=== PATIENT | male | born 1940 | race Caucasian/White ===

== ENCOUNTER 2020-05-16 14:11 | Inpatient (IN) | payer MEDICARE, SELFPAY ==
[2020-05-16] VITALS (22 sets, daily range): BP systolic 149–193; BP diastolic 66–82; PULSE 66–87; RESP 16–26; TEMP 36.3–36.7; O2SAT 95–99; BMI 17.9
--- NOTE | ~2020-05-16 | XR_ITS ---
EXAMINATION: XR chest 1V portable DATE: 05/16/2020 15:52 INDICATION: Chronic obstructive pulmonary disease. Preop. TECHNIQUE: A single frontal view of the chest was obtained. COMPARISON: Chest 2 views 12/20/2017 FINDINGS: The lungs are hyperexpanded with lucencies, consistent with emphysema. There is mild scarri ng at right lung base. A calcified left lung nodule is consistent with old granulomatous disease. No pleural effusion or pneumothorax. The heart size is normal. There are changes of posterior fusion pro cedure in thoracic spine. IMPRESSION: 1. Emphysema. Reviewed, dictated and finalized at location A. UCTION ASSEMBLY SUPERVISOR IMPRESSION: 1. Emphysema.
--- NOTE | ~2020-05-16 | XR_ITS ---
EXAMINATION: XR surgery orthopedic DATE: 05/17/2020 14:06 INDICATION: Intertrochanteric fracture of proximal left femur. TECHNIQUE: 5 intraoperative fluoroscopic views of left femur were obtained. I was not present. Fluoro scopy exposure time was 103 seconds. COMPARISON: Left hip radiographs 05/16/2020 FINDINGS: There is an intertrochanteric fracture of proximal left femur status post open reduction in ternal fixation with antegrade intramedullary layla, femoral head/neck screw, and distal interlocking s crew. The distal fracture fragment demonstrates near-anatomic alignment. IMPRESSION: 1. Intertrochanteric fracture of proximal left femur in near-anatomic alignment status post open redu ction internal fixation. Reviewed, dictated and finalized at location A. ET DIRECTOR IMPRESSION: 1. Intertrochanteric fracture of proximal left femur in near-anatomic alignment status post open reduction internal fixation.
--- NOTE | ~2020-05-16 | XR_ITS ---
EXAMINATION: XR hip LT min 2V DATE: 05/16/2020 14:59 INDICATION: Left hip pain. Fall. TECHNIQUE: 2 views of left hip were obtained. COMPARISON: None. FINDINGS: There is an intertrochanteric fracture of proximal left femur. The distal fracture fragment demonstrates 22 degrees varus angulation and impaction. 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 There is moderate lumbar spondylosis. IMPRESSION: 1. Intertrochanteric fracture of proximal left femur. Reviewed, dictated and finalized at location A. RBERATORY SKIMMER
--- NOTE | 2020-05-16 14:19 | ECG_ITS ---
Measurements Intervals Mercedes Rate: 77 P: 77 OR: 144 QRS: 97 QRSD: 130 T: 72 QT: 388 QTc: 439 Interpretive Statements SINUS RHYTHM RIGHT BUNDLE BRANCH BLOCK BASELINE ARTIFACT- I, II, III, AVR, AVL, V1-V6 ABNORMAL ECG Electronically Signed On 05-16-2020 14:25:28 AUTO TRAVEL COUNSELOR by Rogerio Mueller D.O.
[2020-05-16] MEDS: MORPHINE SULFATE (*CRX) 4 MG/ML INJ IV PUSH (15:45)
[2020-05-16 15:48] LABS: Basophils Absolute Auto 0.1 K/mm3 (0.0-0.1); Basophils Percent Auto 0.4 % (0.2-1.2); Eosinophils Absolute Auto 0.1 K/mm3 (0-0.3); Eosinophils Percent Auto 0.8 % (0-4.4); Hematocrit 36.9 % (42.0-52.0); Hemoglobin 12.7 g/dL (14.0-18.0); Immature Granulocyte Absolute 0.04 K/mm3 (0.00-0.031); Immature Granulocyte Percent A 0.3 % (0-0.5); Lymphocytes Absolute Auto 0.89 K/mm3 (0.9-3.2); Lymphocytes Percent Auto 7.2 % (18.3-44.2); Mean Corpuscular HGB Conc 34.4 g/dl (32-36); Mean Corpuscular Hemoglobin 35.9 pg (26-34); Mean Corpuscular Volume 104.2 fl (80-100); Mean Platelet Volume 8.4 fl (7.4-10.4); Monocytes Absolute Auto 0.7 K/mm3 (0.1-0.6); Monocytes Percent Auto 5.7 % (2.6-8.5); Neutrophils Absolute Auto 10.6 K/mm3 (1.3-6.7); Neutrophils Percent Auto 85.6 % (45.5-73.1); Platelet Count Result 228 k/mm3 (150-375); Red Blood Count 3.54 M/mm3 (4.6-6.20); Red Cell Distribution Width 12.5 % (11.5-14.5); White Blood Count 12.4 K/mm3 (4.5-10.0)
[2020-05-16 15:57] LABS: INR 0.9; Prothrombin Time 12.6 Seconds (11.1-14.7)
[2020-05-16 16:01] LABS: Anion Gap 6 mmol/L (8-16); Blood Urea Nitrogen 22 mg/dL (9-20); Carbon Dioxide 25 mmol/L (22-30); Chloride 105 mmol/L (98-107); Estimated CRCL calculation 25 ml/min; Estimated Glomerular Filt Rate 39; Glucose 104 mg/dL (75-110); Potassium 4.4 mmol/L (3.4-5.0); Sodium 136 mmol/L (137-145)
--- NOTE | 2020-05-16 16:08 | ED.LOWEXIN ---
HPI - Extremity Injury (Lower) General Chief Complaint: Extremity Injury, Lower Stated Complaint: fall/ hip pain Time Seen by Provider: 05/16/20 14:45 Source: patient Mode of arrival: EMS Limitations: no limitations History of Present Illness HPI Narrative: 80-year-old male Has history of COPD which is well controlled on a once daily inhaler and hypertension on losartan Patient states that he got his Covid vaccination today and on the way out of the vaccination center tripped on the curb and fell and injured his left hip He did not sustain any other injuries and has no other complaints Obvious deformity and pain to the left lower extremity Related Data Home Medications Medication Instructions Recorded Confirmed fluticasone furoate-vilanterol INHALATION 05/16/20 [Breo Ellipta] lorazepam PO 05/16/20 losartan PO 05/16/20 simvastatin mg 05/16/20 Allergies Allergy/AdvReac Type Severity Reaction Status Date / Time No Known Allergies Allergy Mild Unverified 11/26/15 08:49 Review of Systems Review of Systems: All systems reviewed & are unremarkable except as noted in HPI and below Constitutional: Constitutional: Denies chills, Denies fatigue, Denies fever(s), Denies headache(s) and Denies weakness Eyes: Eyes: Reports no additional eye complaints and Denies change in vision ENT: Denies headache(s), Denies epistaxis, Denies nasal congestion and Denies sore throat Cardiovascular: Cardiovascular: Denies chest pain, Denies leg edema, Denies palpitations and Denies dyspnea Respiratory: Respiratory: Reports cough (Chronic), Denies dyspnea and Denies wheezing Gastrointestinal: Gastrointestinal: Denies abdominal pain, Denies diarrhea, Denies nausea and Denies vomiting Genitourinary: Genitourinary: Denies hematuria, Denies dysuria and Denies urinary frequency Musculoskeletal: Musculoskeletal: Denies back pain, Denies deformity, Reports arthralgias, Reports joint swelling, Denies muscle weakness and Denies numbness Integumentary/Breasts: Skin/Breast: Denies rash and Denies wounds Neurologic: Denies headache(s), Denies focal weakness, Denies numbness and Denies weakness Psychiatric: Psychiatric: Reports no additional psychiatric complaints Endocrine: Endocrine: Denies fatigue and Denies palpitations Hematologic/Lymphatic: Hematologic/Lymphatic: Denies easy bleeding and Denies easy bruising Allergic/Immunologic: Allergic/Immunologic: Denies wheezing PMFSH Family History Family History (Updated 10/18/15 @ 23:19 by DOCTOR UNKNOWN) Mother Family history of Alzheimer's disease, Onset Age: 87 Patient's mother is , Onset Age: 87 Sibling Family history of diabetes mellitus in first degree relative Family history of heart disease in male family member before age 55 Father Family history of heart disease in male family member before age 55 Patient's father is , Onset Age: 70 Social History Social History Smoking status: Never smoker Alcohol intake: current Exam Const: General: no acute distress, well developed, alert and awake Orientation/consciousness: patient oriented x3 (alert) HENMT: Head: normocephalic and atraumatic Ears: external ears normal General nose exam: No nasal discharge present and no epistaxis Face and sinus: face symmetric Eyes: Conjunctivae: conjunctivae normal Sclera: sclerae normal EOM: EOMs intact bilaterally Neck: Neck: normal visual inspection, supple and no JVD Chest: Chest palpation & inspection: deferred Resp: Effort & Inspection: normal respiratory effort and not tachypneic Auscultation: other (BS =) Cardio: Rate: regular rate Rhythm: regular rhythm Heart sounds: no gallops GI: Inspection: normal to inspection Back/Spine/Pelvis: Thoracic/Lumbar Spine: thoracic and lumbar spine normal to inspection Skin: General skin exam: normal color and no rashes or lesions noted Neuro: General: patient oriented x3 (a
--- NOTE | 2020-05-16 17:30 | ADMGEN ---
This patient, Pablito Cameron, was admitted to Medical Room 260-01. Patient/family oriented to hospital policies and general routines including ID bracelet, bed and alarms, visiting hours, pain management, procedures, bathroom and other care routines, personal items, smoking policy, room service/diet, and visiting hours. Information on how to activate the Rapid Response Team has been discussed. Patient/Family are encouraged to report perceived risks to care and to ask questions if they do not understand what they are told or what they should do.
[2020-05-16] MEDS: LACTATED RINGERS 1,000 ML 60 ML IV CONT (17:46)
--- NOTE | 2020-05-16 18:04 | PM.IMHP ---
H&P: HPI History of Present Illness Date/Time: 05/16/20 18:04 Chief Complaint: Left hip pain Narrative: Pablito Cameron is a 80 year old male who has a history of COPD. The patient has frequent falls as well. He lives at home with his daughter and son-in-law. The patient was leaving the [facility] after receiving his COVID vaccine when he fell backwards on his back after stepping off of a curb side. The patient stated that he did not hit his head or lose consciousness. The patient noticed that his left leg was deformed. There was obvious deformity to the left leg. Hip x-ray was read as Intratrochanteric fracture of proximal left femur. Dr. Petersen has been consulted. The patient was given morphine in the emergency room. The patient is being admitted to inpatient services on 05/16/2020. Review of Systems Review of Systems: All systems reviewed & are unremarkable except as noted in HPI and below Constitutional: Constitutional: Reports as per HPI and Reports no additional constitutional complaints Eyes: Eyes: Reports as per HPI and Reports no additional eye complaints ENT: Reports system reviewed and no additional complaints, except as documented and Reports Normal hearing present Cardiovascular: Cardiovascular: Reports no additional cardiovascular complaints Respiratory: Respiratory: Reports no additional respiratory complaints and Reports no additional respiratory complaints Gastrointestinal: Gastrointestinal: Reports as per HPI and Reports no additional gastrointestinal complaints Musculoskeletal: Musculoskeletal: Reports no additional musculoskeletal complaints Integumentary/Breasts: Skin/Breast: Reports system reviewed and no additional complaints, except as docu and Reports as per HPI Neurologic: Reports system reviewed and no additional complaints, except as documented, Reports as per HPI and Reports Normal hearing present Psychiatric: Psychiatric: Reports no additional psychiatric complaints and Reports as per HPI Endocrine: Endocrine: Reports no additional endocrine complaints Hematologic/Lymphatic: Hematologic/Lymphatic: Reports no additional hematologic/lymphatic complaints Allergic/Immunologic: Allergic/Immunologic: Reports no additional allergic/immunologic complaints [facility] Past Medical History Medical History (Updated 05/16/20 @ 18:38 by Gosia Vaca NP) Anxiety COPD (chronic obstructive pulmonary disease) History of lower leg fracture History of rib fracture Hyperlipidemia Hypertension Tobacco abuse Surgical History Surgical History (Updated 05/16/20 @ 18:20 by Gosia Vaca NP) H/O inguinal hernia repair Bilaterally History of appendectomy History of back surgery Family History Family History Mother Family history of Alzheimer's disease, Onset Age: 87 Patient's mother is , Onset Age: 87 Sibling Family history of diabetes mellitus in first degree relative Family history of heart disease in male family member before age 55 Father Family history of heart disease in male family member before age 55 Patient's father is , Onset Age: 70 Social History Social History (Updated 05/16/20 @ 18:28 by Gosia Vaca NP) Social History: Patient is . He is retired ready mix truck driver. He lives with his daughter and son-in-law. The patient told me that he is a DNR. However he stated that he would allow intubation for surgery. He has 5 children. The daughter he lives with is the durable power estate attorney for healthcare. He continues to smoke a half a pack a cigarettes a day. No alcohol marijuana or illicit drugs. Smoking packs per day: 0.5 Smoking cigarettes per day: 10.0 Smoking status: Current every day smoker Tobacco type: cigars Alcohol intake: never Substance use: never Gender identity (if verbalized by the patient): Male Sexual Orientation (if Verbal
[2020-05-16] MEDS: IPRATROPIUM BR 0.02% INH SOLN 0.5 MG/2.5 ML VIAL INHALATION (19:57)
[2020-05-16] MEDS: ALBUTEROL SULFATE NEB 2.5 MG/0.5 ML INH INHALATION (19:57)
[2020-05-17] VITALS (23 sets, daily range): BP systolic 130–190; BP diastolic 58–98; PULSE 67–106; RESP 18–31; TEMP 36.3–37.3; O2SAT 91–100; BMI 17.9
[2020-05-17] MEDS: MORPHINE SULFATE (*CRX) 2 MG/ML INJ IV PUSH (02:06)
[2020-05-17] MEDS: IPRATROPIUM BR 0.02% INH SOLN 0.5 MG/2.5 ML VIAL INHALATION ×3 (03:45→20:00)
[2020-05-17] MEDS: ALBUTEROL SULFATE NEB 2.5 MG/0.5 ML INH INHALATION ×3 (03:45→19:59)
[2020-05-17 05:23] LABS: Basophils Percent Auto 0.3 % (0.2-1.2); Hematocrit 35.6 % (42.0-52.0); Hemoglobin 12.3 g/dL (14.0-18.0); Immature Granulocyte Absolute 0.05 K/mm3 (0.00-0.031); Immature Granulocyte Percent A 0.4 % (0-0.5); Lymphocytes Absolute Auto 0.75 K/mm3 (0.9-3.2); Lymphocytes Percent Auto 6.6 % (18.3-44.2); Mean Corpuscular HGB Conc 34.6 g/dl (32-36); Mean Corpuscular Hemoglobin 35.5 pg (26-34); Mean Corpuscular Volume 102.9 fl (80-100); Mean Platelet Volume 8.4 fl (7.4-10.4); Monocytes Absolute Auto 0.9 K/mm3 (0.1-0.6); Neutrophils Absolute Auto 9.7 K/mm3 (1.3-6.7); Neutrophils Percent Auto 84.7 % (45.5-73.1); Platelet Count Result 220 k/mm3 (150-375); Red Blood Count 3.46 M/mm3 (4.6-6.20); Red Cell Distribution Width 12.4 % (11.5-14.5); White Blood Count 11.4 K/mm3 (4.5-10.0)
[2020-05-17 05:41] LABS: Anion Gap 7 mmol/L (8-16); Blood Urea Nitrogen 22 mg/dL (9-20); Calcium 9.3 mg/dL (8.4-10.2); Carbon Dioxide 23 mmol/L (22-30); Chloride 104 mmol/L (98-107); Estimated CRCL calculation 27 ml/min; Estimated Glomerular Filt Rate 45; Glucose 112 mg/dL (75-110); Magnesium 1.7 mg/dL (1.6-2.3); Potassium 4.3 mmol/L (3.4-5.0); Sodium 134 mmol/L (137-145)
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
[2020-05-17] MEDS: LACTATED RINGERS 1,000 ML 60 ML IV CONT (09:59)
[2020-05-17] MEDS: LOSARTAN POTASSIUM 25 MG TABLET PO (10:02)
--- NOTE | 2020-05-17 11:05 | PM.IMPN ---
Progress Note: A&P Assessment and Plan (1) Closed fracture of left hip: Qualifiers: Encounter type: initial encounter Qualified Code(s): S72.002A - Fracture of unspecified part of neck of left femur, initial encounter for closed fracture Code(s): S72.002A - Fracture of unspecified part of neck of left femur, initial encounter for closed fracture Status: Acute Assessment and Plan: Patient sustained a mechanical fall 05/16. X-ray shows intertrochanteric fracture of proximal left femur. Dr. Petersen consulted - appreciate recommendations. Plan is for surgical intervention with L gamma nail this afternoon. Postoperative wound care, pain control, DVT prophylaxis per orthopedic surgery recommendations. Perioperative risk stratification: Patient appears moderate risk for surgery given his chronic emphysema and ongoing tobacco use however risk of nonsurgical management of his fracture seem greater. Chest x-ray shows chronic emphysema without acute consolidation or infiltrates. With a right bundle branch block. Right bundle branch block is not new and is evident on EKGs dating back to at least 2015. Routine lab work demonstrates a mild leukocytosis - suspect may be stress reaction from trauma; afebrile, infectious process is not suspected at this time however will order UA for completeness sake. Edit: Notified by nursing of one episode of dark emesis prior to going down to surgery. First episode of this. RN will call to make surgery aware of same. He has zofran ordered and I will order IV protonix. He denies history of ulcers, GI bleeding, or hematemesis. Hgb is stable this morning. Gastric occult is ordered - will monitor and await these results, if vomiting recurs will consider consider GI consultation. (2) COPD (chronic obstructive pulmonary disease): Code(s): J44.9 - Chronic obstructive pulmonary disease, unspecified Status: Chronic Assessment and Plan: CXR shows emphysema without acute findings. Maintained on his home symbicort. Reports his breathing and cough are at his baseline. Continue bronchodilator therapy with nebulziers. (3) Hypertension: Code(s): I10 - Essential (primary) hypertension Status: Chronic Assessment and Plan: BP a bit elevated this morning 162/77, may be related to pain and this is also prior to getting his AM medication. Continue his home losartan. Monitor BP and adjust treatment as needed. (4) Hyperlipidemia: Code(s): E78.5 - Hyperlipidemia, unspecified Status: Chronic Assessment and Plan: Continue home statin therapy. (5) Tobacco abuse: Code(s): Z72.0 - Tobacco use Status: Chronic Assessment and Plan: Smoking cessation encouraged. Offered him a nicotine patch but declined at this time. Wants to quit. (6) Anxiety: Code(s): F41.9 - Anxiety disorder, unspecified Status: Chronic Assessment and Plan: Continue Ativan. Subjective Date/time seen: 05/17/20 0945 Interval history: Mr. Cameron is a pleasant 80yo M with COPD who is admitted for left hip fracture. Per the records plan is for surgical intervention with gamma nail by Dr Petersen this afternoon. Patient reports severe left hip pain at time of my encounter that he rates 11/10 severity. He denies chest pain or shortness of breath. He reports a productive cough that he always has due to COPD and smoking. He tells me neither his breathing nor his cough are worse than his baseline. He denies any abdominal pain, nausea or vomiting aside from being hungry this morning. He is in good spirits and understands the plan for today. Review of Systems Review of Systems: All systems reviewed & are u
[2020-05-17] MEDS: PANTOPRAZOLE SODIUM IV 40 MG VIAL IV PUSH (11:39)
--- NOTE | 2020-05-17 11:40 | PC.NURSE ---
Building Contractor had pt take his dentures out which caused him to have a emesis, observed rust color, coffee ground emesis, approximately 100cc. Building Contractor notified Sommer BUSH and Dr. Rhianna Brownlee give protonix IV times one and continue with surgery as planned.
[2020-05-17 11:48] LABS: Gastric Negative Control Negative; Gastric Positive Control Positive; Occult Blood Gastric Fluid Positive; pH Gastric Fluid 3 (1-8)
--- NOTE | 2020-05-17 11:48 | WPDANESEPPF ---
Anes - Initial Pre Proc Eval Procedure: Operation Date: 05/17/20 12:45 Proposed Procedures p Left Gamma Nail - Dago Petersen MD Date/Time: 05/17/20 11:48 Surgeon: LU Ann Pre Op Diagnosis: Left hip fracture/COPD Patient Data Age: 80 Gender: M Height: 5 ft 7 in Weight: 51.8 kg Last Vital Signs Temp 97.6 F 05/17/20 07:49 Pulse 106 H 05/17/20 08:20 Resp 18 05/17/20 08:20 BP 162/77 H 05/17/20 07:49 Pulse Ox 94 05/17/20 08:20 Allergies Allergy/AdvReac Type Severity Reaction Status Date / Time No Known Allergies Allergy Mild Verified 05/16/20 18:28 Home Medications Medication Instructions Recorded Confirmed Type fluticasone furoate-vilanterol 1 inh INHALATION DAILY 05/16/20 05/16/20 History [Breo Ellipta] lorazepam [Ativan] 1 mg PO DAILY 05/16/20 05/16/20 History losartan 25 mg PO DAILY 05/16/20 05/16/20 History simvastatin 20 mg PO DAILY 05/16/20 05/16/20 History Laboratory Tests 05/16/20 05/16/20 05/16/20 15:39 15:39 15:39 WBC 12.4 K/mm3 H K/mm3 (4.5-10.0) RBC 3.54 M/mm3 L M/mm3 (4.6-6.20) Hgb 12.7 g/dL L g/dL (14.0-18.0) Hct 36.9 % L % (42.0-52.0) MCV 104.2 fl H fl (80-100) MCH 35.9 pg H pg (26-34) MCHC 34.4 g/dl g/dl (32-36) RDW 12.5 % % (11.5-14.5) Plt Count 228 k/mm3 k/mm3 (150-375) MPV 8.4 fl fl (7.4-10.4) Immature Gran % (Auto) 0.3 % % (0-0.5) Neut % (Auto) 85.6 % H % (45.5-73.1) Lymph % (Auto) 7.2 % L % (18.3-44.2) [place] % (Auto) 5.7 % % (2.6-8.5) Eos % (Auto) 0.8 % % (0-4.4) Baso % (Auto) 0.4 % % (0.2-1.2) Lymph # (Auto) 0.89 K/mm3 L K/mm3 (0.9-3.2) [place] # (Auto) 0.7 K/mm3 H K/mm3 (0.1-0.6) Eos # (Auto) 0.1 K/mm3 K/mm3 (0-0.3) Baso # (Auto) 0.1 K/mm3 K/mm3 (0.0-0.1) Abs Immat Gran (auto) 0.04 K/mm3 H K/mm3 (0.00-0.031) Absolute Neuts (auto) 10.6 K/mm3 H K/mm3 (1.3-6.7) Absolute Nucleated RBC 0.0 K/mm3 K/mm3 (0.0-0.012) Nucleated RBC % 0.0 % % (0.0-0.2) PT 12.6 Seconds Seconds (11.1-14.7) INR 0.9 Sodium 136 mmol/L L mmol/L (137-145) Potassium 4.4 mmol/L mmol/L (3.4-5.0) Chloride 105 mmol/L mmol/L (98-107) Carbon Dioxide 25 mmol/L mmol/L (22-30) Anion Gap 6 mmol/L L mmol/L (8-16) BUN 22 mg/dL H mg/dL (9-20) Creatinine 1.70 mg/dL H mg/dL (0.7-1.3) Estim Creat Clear Calc 25 ml/min ml/min Estimated GFR 39 L (59 - ) Glucose 104 mg/dL mg/dL (75-110) Calcium 9.0 mg/dL mg/dL (8.4-10.2) Magnesium TSH (Reflex) Gastric Fluid pH Gastric Occult Blood Blood Type Antibody Screen 05/16/20 05/17/20 05/17/20 15:39 05:10 05:10 WBC 11.4 K/mm3 H K/mm3 (4.5-10.0) RBC 3.46 M/mm3 L M/mm3 (4.6-6.20) Hgb 12.3 g/dL L g/dL (14.0-18.0) Hct 35.6 % L % (42.0-52.0) MCV 102.9 fl H fl (80-100) MCH 35.5 pg H pg (26-34) MCHC 34.6 g/dl g/dl (32-36) RDW 12.4 % % (11.5-14.5) Plt Count 220 k/mm3 k/mm3 (150-375) MPV 8.4 fl fl (7.4-10.4) Immature Gran % (Auto) 0.4 % % (0-0.5) Neut % (Auto) 84.7 % H % (45.5-73.1) Lymph % (Auto) 6.6 % L % (18.3-44.2) [place] % (Auto) 8.0 % % (2.6-8.5) Eos % (Auto) 0.0 % % (0-4.4) Baso % (Auto) 0.3 % % (0.2-1.2) Lymph # (Auto) 0.75 K/mm3 L K/mm3 (0.9-3.2) [place] # (Auto) 0.9 K/mm3 H K/mm3 (0.1-0.6) Eos # (Auto) 0.0 K/mm3 K/mm3 (0-0.3) Baso # (Auto) 0.0 K/mm3 K/mm3 (0.0-0.1) Abs Immat Gran (auto) 0.05 K/mm3 H K/mm3
[2020-05-17] MEDS: TRANEXAMIC ACID 1,000MG/ISO100 1,000 MG/100 ML BAG 200 MG IVPB (12:27)
--- NOTE | 2020-05-17 12:47 | WPDHPUPDATE1 ---
History and Physical Update Update Date/Time: 05/17/20 12:47 History and Physical has been reviewed, including an updated exam of the patient. There are NO changes in the patient's condition. Risks, benefits, and alternatives have been discussed and questions answered. Patient agrees to proceed with procedure.
--- NOTE | 2020-05-17 12:55 | PC.NURSE ---
Addendum entered by Madeleine Barrera RN 05/17/20 13:01: report given to Emperatriz ZUNIGA Original Note: To OR per matildaer, IV 20 LAC SL. Report given to .
[2020-05-17] MEDS: LACTATED RINGERS 1,000 ML 30 ML IV CONT (12:57)
[2020-05-17] MEDS: ceFAZolin 2 GM/D5W 50 ML 2 GM/50 ML BAG IVPB ×2 (13:11→20:25)
--- NOTE | 2020-05-17 14:24 | PM.PROC ---
Procedure Note - Detailed Date of procedure: 05/17/20 Pre-op diagnosis: Left hip fracture/COPD Post-op diagnosis: same Procedure performed: INSERTION OF GAMMA [place] LEFT HIP FRACTURE Description of procedure: THE PATIENT WAS TAKEN TO THE OR AND PLACED ON A FRACTURE TABLE AFTER HAVEN BEEN GIVEN GENERAL ANESTHESIA. THE LEFT LOWER EXTREMITY WAS PLACED IN A TRACTION BOOT AND USING SOME TRACTION AND INTERNAL ROTATION THE INTER TROCH FRACTURE WAS REDUCED TO ANATOMIC POSITION. NEXT THE LEFT LOWER EXTREMITY WAS PREPPED AND DRAPED IN THE STERILE FASHION. AN INCISION WAS MADE PROXIMAL TO THE TIP OF THE GREATER TROCHANTER AND DISSECTION CONTINUED TILL THE TIP OF THE GREATER TROCHANTER WAS PALPATED. A GUIDE WAS PLACED DOWN THE FEMORAL CANAL AND PAST THE FRACTURE SITE. THIS WAS CHECKED ON FLUOROSCOPY AND FOUND TO BE IN GOOD POSITION. AN INITIAL REAMER WAS USED TO REAM THE FEMORAL CANAL. AN 11 BY 180 MM GAMMA T[place] WAS INSERTED TILL THE CORRECT POSITION WAS IDENTIFIED ON XRAY. A GUIDE PIN WAS INSERTED AT 125 DEG ANGLE TILL IT REACHED THE TIP OF THE SUB CHONDRAL BONE SEEN ON XRAY. AFTER REAMING, LAG SCREW WAS INSERTED AT 125 [address]GLE MEASURING 110 MM. XRAYS SHOWED IT TO BE IN GOOD POSITION. THE LAG SCREW WAS LOCKED PROXIMALLY WITH A LOCKING SCREW. NEXT A DISTAL LOCKING SCREW WAS PLACED ACROSS THE T[place] AND WAS IN GOOD POSITION ON XRAY. THE TRACTION WAS RELEASED. THE WOUNDS WERE WASHED. THE DEEP FASCIA WAS REPAIRED WITH 0 VICRYL SUTURE, THE SUB CUTANEOUS LAYER WITH 2-0 VICRYL, AND THE SKIN WITH [place]. THE WOUNDS WERE WASHED AND THEN STERILE DRESSING WAS APPLIED. PATIENT WAS EXTUBATED AND SENT TO RECOVERY ROOM. Anesthesia: GLMA Surgeon: Dago Petersen MD Estimated blood loss (mL): 50 Drains: No Packing: No Pathology: none sent Complications: No immediate complications Condition: stable Disposition: PACU
--- NOTE | 2020-05-17 14:29 | PC.NURSE ---
On 05/17/20, the student, [ Nolberto Garcia], provided care and completed [facility] documentation on this patient. I have reviewed the student's documentation and agree with the findings.
[2020-05-17] MEDS: fentaNYL CITRATE INJ (*CRX) 100 MCG/2 ML VIAL 25 MCG IV PUSH (15:09)
--- NOTE | 2020-05-17 16:02 | PC.NURSE ---
Returned from OR per stretcher. Report received from Cat RN.
[2020-05-17] MEDS: DOCUSATE SODIUM 100 MG CAPSULE PO (17:27)
[2020-05-17 19:32] LABS: Add Urine Microscopic? YES; Appearance Urine Clear (Clear); Bacteria Urine Trace /hpf; Bilirubin Urine Negative (Negative); Blood Urine 3+ (Negative); Color Urine Yellow (Yellow); Glucose Urine UA Negative (Negative); Ketones Urine Negative (Negative); Leukocyte Esterase Ur Trace LEU/UL (Negative); Mucus Urine Rare /lpf; Nitrate Urine Negative (Negative); Protein Urine 2+ mg/dL (Negative); RBC Urine >75 /hpf (0-2); Specific Grav Ur 1.023 (1.001-1.035); Urobilinogen Urine Negative mg/dL (<2.0); WBC Urine 21-30 /hpf
[2020-05-18] VITALS (16 sets, daily range): BP systolic 137–154; BP diastolic 54–68; PULSE 50–111; RESP 16–20; TEMP 36.6–37; O2SAT 92–99
[2020-05-18] MEDS: IPRATROPIUM BR 0.02% INH SOLN 0.5 MG/2.5 ML VIAL INHALATION ×4 (02:09→21:51)
[2020-05-18] MEDS: ALBUTEROL SULFATE NEB 2.5 MG/0.5 ML INH INHALATION ×4 (02:09→21:51)
[2020-05-18] MEDS: ceFAZolin 2 GM/D5W 50 ML 2 GM/50 ML BAG IVPB ×2 (03:01→10:30)
[2020-05-18 05:40] LABS: Basophils Percent Auto 0.2 % (0.2-1.2); Eosinophils Percent Auto 0.1 % (0-4.4); Hematocrit 31.5 % (42.0-52.0); Hemoglobin 10.9 g/dL (14.0-18.0); Immature Granulocyte Absolute 0.07 K/mm3 (0.00-0.031); Immature Granulocyte Percent A 0.5 % (0-0.5); Lymphocytes Absolute Auto 0.61 K/mm3 (0.9-3.2); Lymphocytes Percent Auto 4.7 % (18.3-44.2); Mean Corpuscular HGB Conc 34.6 g/dl (32-36); Mean Platelet Volume 8.4 fl (7.4-10.4); Monocytes Absolute Auto 0.9 K/mm3 (0.1-0.6); Monocytes Percent Auto 7.2 % (2.6-8.5); Neutrophils Absolute Auto 11.2 K/mm3 (1.3-6.7); Neutrophils Percent Auto 87.3 % (45.5-73.1); Platelet Count Result 197 k/mm3 (150-375); Red Blood Count 3.03 M/mm3 (4.6-6.20); Red Cell Distribution Width 12.8 % (11.5-14.5); White Blood Count 12.9 K/mm3 (4.5-10.0)
[2020-05-18 05:52] LABS: Anion Gap 7 mmol/L (8-16); Blood Urea Nitrogen 25 mg/dL (9-20); Calcium 8.8 mg/dL (8.4-10.2); Carbon Dioxide 24 mmol/L (22-30); Chloride 103 mmol/L (98-107); Estimated CRCL calculation 27 ml/min; Estimated Glomerular Filt Rate 45; Glucose 112 mg/dL (75-110); Magnesium 1.6 mg/dL (1.6-2.3); Sodium 134 mmol/L (137-145)
[2020-05-18] MEDS: LOSARTAN POTASSIUM 25 MG TABLET PO (09:03)
[2020-05-18] MEDS: LORazepam (*CRX) 1 MG TABLET PO (09:03)
[2020-05-18] MEDS: DOCUSATE SODIUM 100 MG CAPSULE PO ×2 (09:03→17:34)
[2020-05-18] MEDS: SIMVASTATIN 20 MG TABLET PO (09:03)
[2020-05-18] MEDS: PANTOPRAZOLE SODIUM IV 40 MG VIAL IV PUSH (09:03)
[2020-05-18] MEDS: FONDAPARINUX SODIUM 2.5 MG/0.5 ML SYRINGE SUB-Q (09:03)
[2020-05-18] MEDS: MAGNESIUM SULF 2 GM/WATER 50ML 2 GM/50 ML BAG IVPB (09:04)
--- NOTE | 2020-05-18 10:50 | WPDANESPN ---
Anes - Prog Note Post-Op Date/Time: 05/18/20 10:50 Cardiovascular status: normal Respiratory status: normal Airway patency: baseline Mental status: baseline Post-Op hydration status: normal Vital Signs: Last Vital Signs Temp 37.0 C 05/18/20 05:34 Pulse 103 H 05/18/20 07:22 Resp 20 05/18/20 07:22 BP 152/68 H 05/18/20 05:34 Pulse Ox 97 05/18/20 09:00 Pain Score (VAS): 03/31 I/O: Intake & Output 05/17/20 05/18/20 05/18/20 23:59 07:59 15:59 Intake Total 360 1050 Output Total 550 Balance 360 500 Laboratory Tests 05/18/20 05:22 05/18/20 05:22 05/17/20 05/17/20 05/18/20 11:37 19:15 05:22 WBC 12.9 H RBC 3.03 L Hgb 10.9 L Hct 31.5 L MCV 104.0 H MCH 36.0 H MCHC 34.6 RDW 12.8 Plt Count 197 MPV 8.4 Immature Gran % (Auto) 0.5 Neut % (Auto) 87.3 H Lymph % (Auto) 4.7 L Moore % (Auto) 7.2 Eos % (Auto) 0.1 Baso % (Auto) 0.2 Lymph # (Auto) 0.61 L Moore # (Auto) 0.9 H Eos # (Auto) 0.0 Baso # (Auto) 0.0 Abs Immat Gran (auto) 0.07 H Absolute Neuts (auto) 11.2 H Absolute Nucleated RBC 0.0 Nucleated RBC % 0.0 Sodium Potassium Chloride Carbon Dioxide Anion Gap BUN Creatinine Estim Creat Clear Calc Estimated GFR Glucose Calcium Magnesium Urine Color Yellow Urine Appearance Clear Urine pH 5.0 Ur Specific [place] 1.023 Urine Protein 2+ H Urine Glucose (UA) Negative Urine Ketones Negative Ur Blood (Man) 3+ H Urine Nitrate Negative Urine Bilirubin Negative Urine Urobilinogen Negative Leukocyte Esterase Rfl Trace H Urine RBC >75 H Urine WBC 21-30 H Urine Bacteria Trace Urine Mucus Rare Gastric Fluid pH 3 Gastric Occult Blood Positive H 05/18/20 05:22 WBC RBC Hgb Hct MCV MCH MCHC RDW Plt Count MPV Immature Gran % (Auto) Neut % (Auto) Lymph % (Auto) Moore % (Auto) Eos % (Auto) Baso % (Auto) Lymph # (Auto) Moore # (Auto) Eos # (Auto) Baso # (Auto) Abs Immat Gran (auto) Absolute Neuts (auto) Absolute Nucleated RBC Nucleated RBC % Sodium 134 L Potassium 4.0 Chloride 103 Carbon Dioxide 24 Anion Gap 7 L BUN 25 H Creatinine 1.50 H Estim Creat Clear Calc 27 Estimated GFR 45 L Glucose 112 H Calcium 8.8 Magnesium 1.6 Urine Color Urine Appearance Urine pH Ur Specific [place] Urine Protein Urine Glucose (UA) Urine Ketones Ur Blood (Man) Urine Nitrate Urine Bilirubin Urine Urobilinogen Leukocyte Esterase Rfl Urine RBC Urine WBC Urine Bacteria Urine Mucus Gastric Fluid pH Gastric Occult Blood Post-procedural complaints: none Patient Feedback: Patient satisfied with anesthetic care.
[2020-05-18] MEDS: HYDROcodone/acetaminophen (*CRX) 7.5-325 MG TABLET 1 TAB PO ×2 (11:40→21:05)
--- NOTE | 2020-05-18 15:56 | WPDPN ---
Progress Note: A&P Additional Plan POD 1 DOING WELL, WORKING WITH PT. CONTINUE PT AND SNF WHEN STABLE Review of Systems Review of Systems: All systems reviewed & are unremarkable except as noted in HPI and below Exam Extrem: Other: VSS AFEBRILE DRESSING DRY NV INTACT NEG HOMANS SIGN Objective Data Vital Signs Vital Signs: Vital Signs - 24 hr 05/17/20 16:10 05/17/20 16:25 05/17/20 16:55 Temperature 37.2 C 37.2 C 37.2 C Pulse Rate 96 95 95 Respiratory Rate 20 20 20 Blood Pressure 153/60 H 168/58 H 150/64 H Pulse Oximetry 94 91 91 05/17/20 17:55 05/17/20 20:00 05/17/20 20:10 Temperature 37.3 C Pulse Rate 90 98 98 Respiratory Rate 20 18 18 Blood Pressure 146/61 H Pulse Oximetry 99 99 05/17/20 22:00 05/18/20 01:34 05/18/20 02:00 Temperature 37.1 C 37.0 C Pulse Rate 101 H 92 82 Respiratory Rate 18 20 20 Blood Pressure 149/64 H 154/67 H Pulse Oximetry 97 95 05/18/20 02:10 05/18/20 05:34 05/18/20 07:16 Temperature 37.0 C Pulse Rate 88 98 99 Respiratory Rate 20 16 20 Blood Pressure 152/68 H Pulse Oximetry 96 05/18/20 07:18 05/18/20 07:22 05/18/20 09:00 Temperature Pulse Rate 99 103 H Respiratory Rate 20 Blood Pressure Pulse Oximetry 97 97 05/18/20 10:00 05/18/20 13:12 05/18/20 13:17 Temperature 37.0 C Pulse Rate 98 99 99 Respiratory Rate 16 20 20 Blood Pressure 137/55 L Pulse Oximetry 99 05/18/20 14:00 Temperature 36.6 C Pulse Rate 50 L Respiratory Rate 16 Blood Pressure 145/54 H Pulse Oximetry 98 Intake/Output Intake/Output: Intake & Output 05/15/20 05/16/20 05/17/20 05/18/20 23:59 23:59 23:59 23:59 Intake Total 100 1660 1100 Output Total 700 550 Balance 100 960 550 Meds/Results Medications: Active Medications Generic Name Dose Route Start Last Admin Trade Name Freq PRN Reason Stop Dose Admin Hydrocodone Bitart/Acetaminophen 1 tab 05/17/20 15:49 05/18/20 11:40 Hydrocodone/Acetaminophen (*Crx) 7.5-325 Mg Tablet PO 1 tab Q6H PRN Administration Pain Rated 4-6 Albuterol 2.5 mg 05/16/20 20:00 05/18/20 13:12 Albuterol Sulfate Neb 2.5 Mg/0.5 Ml Inh INHALATION 2.5 mg Q6HRT ARIANNA Administration Budesonide/Formoterol Fumarate 2 puff 05/17/20 08:00 05/18/20 07:16 Budesonide/Form 160-4.5 Mcg (*Sp) INHALATION 2 puff Q12HRT ARIANNA Administration Diazepam 5 mg 05/17/20 15:49 Diazepam (*Crx) 5 Mg Tablet PO Q8H PRN Muscle Spasm Docusate Sodium 100 mg 05/17/20 17:00 05/18/20 09:03 Docusate Sodium 100 Mg Capsule PO 100 mg BID ARIANNA Administration Fondaparinux 2.5 mg 05/18/20 09:00 05/18/20 09:03 Fondaparinux Sodium 2.5 Mg/0.5 Ml Syringe SUB-Q 2.5 mg DAILY ARIANNA Administration Ipratropium [place] 0.5 mg 05/16/20 20:00 05/18/20 13:11 Ipratropium Br 0.02% Inh Soln 0.5 Mg/2.5 Ml Vial INHALATION 0.5 mg Q6HRT ARIANNA Administration Lorazepam 1 mg 05/17/20 09:00 05/18/20 09:03 Lorazepam (*Crx) 1 Mg Tablet PO 1 mg DAILY ARIANNA Administration Losartan Potassium 25 mg 05/17/20 09:00 05/18/20 09:03 Losartan Potassium 25 Mg Tablet PO 25 mg DAILY ARIANNA Administration Magnesium Hydroxide 30 ml 05/17/20 15:49 Magnesium Hydroxide Susp 30 Ml Udc PO BID PRN Constipation Morphine Sulfate 2 mg 05/16/20 17:58 05/17/20 02:06 Morphine Sulfate (*Crx) 2 Mg/Ml Inj IV PUSH 2 mg Q4H PRN Administration Pain Rated 7-10 Ondansetron HCl 4 mg 05/17/20 12:17 Ondansetron Inj 4 Mg/2 Ml Vial IV PUSH ONCE PRN Nausea Pantoprazole Sodium 40 mg 05/17/20 11:20 05/18/20 09:03 Pantoprazole Sodium Iv 40 Mg Vial IV PUSH 40 mg QAM ARIANNA Administration Simvastatin 20 mg 05/17/20 09:00 05/18/20 09:03 Simvastatin 20 Mg Tablet PO 20 mg DAILY ARIANNA Administration Radiology Results: ITS Impressions Hip X-Ray 05/16/20 15:00 IMPRESSION: 1. Intertrochanteric fracture of proximal left femur. Chest X-Ray 05/16/20 15
--- NOTE | 2020-05-18 16:01 | PM.IMPN ---
Progress Note: A&P Assessment and Plan (1) Closed fracture of left hip: Qualifiers: Encounter type: initial encounter Qualified Code(s): S72.002A - Fracture of unspecified part of neck of left femur, initial encounter for closed fracture Code(s): S72.002A - Fracture of unspecified part of neck of left femur, initial encounter for closed fracture Status: Acute Assessment and Plan: Patient sustained a mechanical fall 05/16. X-ray showed intertrochanteric fracture of proximal left femur. He is now doing well POD#1 left gamma nail insertion by Dr Petersen 05/17/20. Postoperative wound care, pain control, DVT prophylaxis per orthopedic surgery recommendations. (2) COPD (chronic obstructive pulmonary disease): Code(s): J44.9 - Chronic obstructive pulmonary disease, unspecified Status: Chronic Assessment and Plan: CXR shows emphysema without acute findings. Maintained on his home symbicort. Reports his breathing and cough are at his baseline. Continue bronchodilator therapy with nebulziers. Lungs actually clearer than yesterday since nebs were started. (3) Hypertension: Code(s): I10 - Essential (primary) hypertension Status: Chronic Assessment and Plan: BPs variable but a bit more stable this afternoon, last 145/54. Continue his home losartan. Monitor BP and adjust treatment as needed. (4) Hyperlipidemia: Code(s): E78.5 - Hyperlipidemia, unspecified Status: Chronic Assessment and Plan: Continue home statin therapy. (5) Tobacco abuse: Code(s): Z72.0 - Tobacco use Status: Chronic Assessment and Plan: Smoking cessation encouraged. Offered him a nicotine patch but declined at this time. Wants to quit. (6) Anxiety: Code(s): F41.9 - Anxiety disorder, unspecified Status: Chronic Assessment and Plan: Continue Ativan. Subjective Date/time seen: 05/18/20 1215 Interval history: Mr. Cameron is a pleasant 80yo M with COPD who is admitted for left hip fracture now POD#1 s/p gamma layla insertion yesterday. He is doing well today. He reports he had a bit of left hip pain working with therapy, however now at rest he describes being in no pain at all. He denies any chest pain or shortness of breath. His cough is at his baseline. He has had no further episodes of emesis and has eaten breakfast without nausea, vomiting, abdominal pain today. In good spirits and offers no complaints. Review of Systems Review of Systems: All systems reviewed & are unremarkable except as noted in HPI and below Exam Narrative: Exam Narrative: General: Male resting supine in bed in no acute distress. HEENT: Normocephalic, EOMI, oral mucosa moist. Cardiovascular: Rate and rhythm are regular. Respiratory: Lungs clear to auscultation anteriorly, improved from yesterday. Respirations even and nonlabored. Cough on exam +. Tolerating low-flow O2 nasal cannula however oxygen saturations are adequate. Abdomen: Soft, non-tender, non-distended, bowel sounds present. Extremities: Peripheral pulses intact. Left leg is neurovascularly intact distal to the surgical site. Dressings to left are clean, dry, intact. Neuro: No focal neurological deficits. Speech is clear. Objective Data Vital Signs Vital Signs: Last Vital Signs Temp 97.9 F 05/18/20 14:00 Pulse 50 L 05/18/20 14:00 Resp 16 05/18/20 14:00 BP 145/54 H 05/18/20 14:00 Pulse Ox 98 05/18/20 14:00 Intake/Output Intake/Output: Intake & Output 05/15/20 05/16/20 05/17/20 05/18/20 23:59 23:59 23:59 23:59 Intake Total 100 1660 1100 Output Total 700 550 Balance 100 960 550 Meds/Results Medications: Acti
[2020-05-19] VITALS (8 sets, daily range): BP systolic 131–135; BP diastolic 58; PULSE 52–113; RESP 16–22; TEMP 36.7–36.9; O2SAT 91–95
[2020-05-19] MEDS: IPRATROPIUM BR 0.02% INH SOLN 0.5 MG/2.5 ML VIAL INHALATION ×4 (02:21→19:50)
[2020-05-19] MEDS: ALBUTEROL SULFATE NEB 2.5 MG/0.5 ML INH INHALATION ×4 (02:21→19:50)
[2020-05-19 05:26] LABS: Basophils Percent Auto 0.1 % (0.2-1.2); Eosinophils Percent Auto 0.1 % (0-4.4); Hematocrit 29.5 % (42.0-52.0); Immature Granulocyte Absolute 0.09 K/mm3 (0.00-0.031); Immature Granulocyte Percent A 0.7 % (0-0.5); Lymphocytes Absolute Auto 0.69 K/mm3 (0.9-3.2); Lymphocytes Percent Auto 5.1 % (18.3-44.2); Mean Corpuscular HGB Conc 33.9 g/dl (32-36); Mean Corpuscular Volume 103.1 fl (80-100); Mean Platelet Volume 8.6 fl (7.4-10.4); Monocytes Absolute Auto 0.9 K/mm3 (0.1-0.6); Monocytes Percent Auto 6.4 % (2.6-8.5); Neutrophils Absolute Auto 11.8 K/mm3 (1.3-6.7); Neutrophils Percent Auto 87.6 % (45.5-73.1); Platelet Count Result 195 k/mm3 (150-375); Red Blood Count 2.86 M/mm3 (4.6-6.20); Red Cell Distribution Width 12.4 % (11.5-14.5); White Blood Count 13.5 K/mm3 (4.5-10.0)
[2020-05-19 05:40] LABS: Anion Gap 6 mmol/L (8-16); Blood Urea Nitrogen 29 mg/dL (9-20); Calcium 8.4 mg/dL (8.4-10.2); Carbon Dioxide 23 mmol/L (22-30); Chloride 104 mmol/L (98-107); Estimated CRCL calculation 25 ml/min; Estimated Glomerular Filt Rate 42; Glucose 90 mg/dL (75-110); Potassium 4.2 mmol/L (3.4-5.0); Sodium 133 mmol/L (137-145)
[2020-05-19] MEDS: HYDROcodone/acetaminophen (*CRX) 7.5-325 MG TABLET 1 TAB PO ×3 (06:09→21:27)
[2020-05-19] MEDS: SODIUM CHLORIDE 0.9% IV 1,000 ML 100 ML IV CONT (08:27)
[2020-05-19] MEDS: FONDAPARINUX SODIUM 2.5 MG/0.5 ML SYRINGE SUB-Q (08:27)
[2020-05-19] MEDS: PANTOPRAZOLE SODIUM IV 40 MG VIAL IV PUSH (08:28)
[2020-05-19] MEDS: LOSARTAN POTASSIUM 25 MG TABLET PO (08:28)
[2020-05-19] MEDS: SIMVASTATIN 20 MG TABLET PO (08:28)
[2020-05-19] MEDS: DOCUSATE SODIUM 100 MG CAPSULE PO (08:28)
[2020-05-19] MEDS: LORazepam (*CRX) 1 MG TABLET PO (08:28)
--- NOTE | 2020-05-19 11:06 | PM.IMPN ---
Progress Note: A&P Assessment and Plan (1) Closed fracture of left hip: Qualifiers: Encounter type: initial encounter Qualified Code(s): S72.002A - Fracture of unspecified part of neck of left femur, initial encounter for closed fracture Code(s): S72.002A - Fracture of unspecified part of neck of left femur, initial encounter for closed fracture Status: Acute Assessment and Plan: Patient sustained a mechanical fall 05/16. X-ray showed intertrochanteric fracture of proximal left femur. POD#2 s/p left gamma layla insertion by Dr Petersen 05/17/20. Postoperative wound care, pain control, DVT prophylaxis per orthopedic surgery recommendations. SNF has been recommended however patient declines. Care coordination has arranged home with home health, family to take turns staying with him. (2) COPD (chronic obstructive pulmonary disease): Code(s): J44.9 - Chronic obstructive pulmonary disease, unspecified Status: Chronic Assessment and Plan: CXR shows emphysema without acute findings. Maintained on his home symbicort. Reports his breathing and cough are at his baseline. Continue bronchodilator therapy with nebulizers. (3) Hypertension: Code(s): I10 - Essential (primary) hypertension Status: Chronic Assessment and Plan: BP stable last 131/58. Continue his home losartan. Monitor BP and adjust treatment as needed. (4) Hyperlipidemia: Code(s): E78.5 - Hyperlipidemia, unspecified Status: Chronic Assessment and Plan: Continue home statin therapy. (5) Tobacco abuse: Code(s): Z72.0 - Tobacco use Status: Chronic Assessment and Plan: Smoking cessation encouraged. Offered him a nicotine patch but declined at this time. Wants to quit. (6) Anxiety: Code(s): F41.9 - Anxiety disorder, unspecified Status: Chronic Assessment and Plan: Continue Ativan. Subjective Date/time seen: 05/19/20 0930 Interval history: Mr. Cameron is a pleasant 80yo M with COPD who is admitted for left hip fracture now POD#2 s/p gamma layla insertion yesterday. He is doing well today. He rates his left hip pain at a 4/10 severity at rest presently but otherwise offers no complaints. He denies feeling short of breath; breathing and cough are at his baseline. He has had no further episodes of emesis and no nausea or abdominal pain. Does not eat much, tells me this has been going on for quite some time. Review of Systems Review of Systems: All systems reviewed & are unremarkable except as noted in HPI and below Exam Narrative: Exam Narrative: General: Male resting supine in bed in no acute distress. HEENT: Normocephalic, EOMI, oral mucosa moist. Cardiovascular: Rate and rhythm are regular. Respiratory: REINALDO expiratory wheezes clear with a cough. Respirations even and nonlabored. Tolerating room air. Abdomen: Soft, non-tender, non-distended, bowel sounds present. Extremities: Peripheral pulses intact. Left leg is neurovascularly intact distal to the surgical site. Dressings to left are clean, dry, intact. Neuro: No focal neurological deficits. Speech is clear. Objective Data Vital Signs Vital Signs: Last Vital Signs Temp 98.4 F 05/19/20 14:00 Pulse 99 05/19/20 14:05 Resp 18 05/19/20 14:05 BP 131/58 L 05/19/20 14:00 Pulse Ox 95 05/19/20 14:00 Intake/Output Intake/Output: Intake & Output 05/16/20 05/17/20 05/18/2021 23:59 23:59 23:59 23:59 Intake Total 100 1660 1300 100 Output Total 700 900 350 Balance 100 960 400 -250 Meds/Results Medications: Active Medications Generic Name Dose Route Start Last Admin Trade Name Freq PRN Reason Stop Dose Admi
--- NOTE | 2020-05-19 12:59 | PM.PNORT ---
Progress Note: A&P Additional Plan POD 2 DOING WELL. PATIENT IS REFUSING SNF. HE IS WANTING TO GO HOME. DC PER MEDICINE. F/U WITH ORTHO IN 6 WEEKS.HE SHOULD REMAIN NON WEIGHT BEARING Subjective Subjective Date/Time Seen: 05/19/20 12:59 POD 2 DOING WELL. DOING WELL WITH PT. NO CALF PAIN Exam Extrem: Other: VSS AFEBRILE DRESSING DRY NV INTACT NEG HOMANS SIGN, CALF SOFT NON TENDER. Objective Data Vital Signs Vital Signs: Vital Signs - 24 hr 05/18/20 13:12 05/18/20 13:17 05/18/20 14:00 Temperature 36.6 C Pulse Rate 99 99 50 L Respiratory Rate 20 20 16 Blood Pressure 145/54 H Pulse Oximetry 98 05/18/20 18:00 05/18/20 21:53 05/18/20 21:56 Temperature 36.9 C Pulse Rate 51 L 111 H Respiratory Rate 18 18 Blood Pressure 141/57 H Pulse Oximetry 96 92 05/18/20 22:33 05/19/20 02:24 05/19/20 07:10 Temperature 36.8 C 36.7 C Pulse Rate 53 L 105 H 52 L Respiratory Rate 16 18 16 Blood Pressure 152/57 H 135/58 L Pulse Oximetry 94 95 05/19/20 08:33 05/19/20 08:35 Temperature Pulse Rate 96 Respiratory Rate 18 Blood Pressure Pulse Oximetry 92 Intake/Output Intake/Output: Intake & Output 05/16/20 05/17/20 05/18/20 05/19/20 23:59 23:59 23:59 23:59 Intake Total 100 1660 1300 100 Output Total 700 900 350 Balance 100 960 400 -250 Meds/Results Medications: Active Medications Generic Name Dose Route Start Last Admin Trade Name Freq PRN Reason Stop Dose Admin Hydrocodone Bitart/Acetaminophen 1 tab 05/17/20 15:49 05/19/20 06:09 Hydrocodone/Acetaminophen (*Crx) 7.5-325 Mg Tablet PO 1 tab Q6H PRN Administration Pain Rated 4-6 Albuterol 2.5 mg 05/16/20 20:00 05/19/20 08:33 Albuterol Sulfate Neb 2.5 Mg/0.5 Ml Inh INHALATION 2.5 mg Q6HRT ARIANNA Administration Budesonide/Formoterol Fumarate 2 puff 05/17/20 08:00 05/19/20 08:33 Budesonide/Form 160-4.5 Mcg (*Sp) INHALATION 2 puff Q12HRT ARIANNA Administration Diazepam 5 mg 05/17/20 15:49 Diazepam (*Crx) 5 Mg Tablet PO Q8H PRN Muscle Spasm Docusate Sodium 100 mg 05/17/20 17:00 05/19/20 08:28 Docusate Sodium 100 Mg Capsule PO 100 mg BID ARIANNA Administration Fondaparinux 2.5 mg 05/18/20 09:00 05/19/20 08:27 Fondaparinux Sodium 2.5 Mg/0.5 Ml Syringe SUB-Q 2.5 mg DAILY ARIANNA Administration Sodium Chloride 1,000 mls @ 100 mls/hr 05/19/20 08:10 05/19/20 08:27 Normal Saline Iv IV CONT 05/19/20 18:09 100 mls/hr .Q10H ARIANNA Administration Ipratropium [place] 0.5 mg 05/16/20 20:00 05/19/20 08:33 Ipratropium Br 0.02% Inh Soln 0.5 Mg/2.5 Ml Vial INHALATION 0.5 mg Q6HRT ARIANNA Administration Lorazepam 1 mg 05/17/20 09:00 05/19/20 08:28 Lorazepam (*Crx) 1 Mg Tablet PO 1 mg DAILY ARIANNA Administration Losartan Potassium 25 mg 05/17/20 09:00 05/19/20 08:28 Losartan Potassium 25 Mg Tablet PO 25 mg DAILY ARIANNA Administration Magnesium Hydroxide 30 ml 05/17/20 15:49 Magnesium Hydroxide Susp 30 Ml Udc PO BID PRN Constipation Morphine Sulfate 2 mg 05/16/20 17:58 05/17/20 02:06 Morphine Sulfate (*Crx) 2 Mg/Ml Inj IV PUSH 2 mg Q4H PRN Administration Pain Rated 7-10 Ondansetron HCl 4 mg 05/17/20 12:17 Ondansetron Inj 4 Mg/2 Ml Vial IV PUSH ONCE PRN Nausea Pantoprazole Sodium 40 mg 05/17/20 11:20 05/19/20 08:28 Pantoprazole Sodium Iv 40 Mg Vial IV PUSH 40 mg QAM ARIANNA Administration Simvastatin 20 mg 05/17/20 09:00 05/19/20 08:28 Simvastatin 20 Mg Tablet PO 20 mg DAILY ARIANNA Administration Radiology Results: ITS Impressions Hip X-Ray 05/16/20 15:00 IMPRESSION: 1. Intertrochanteric fracture of proximal left femur. Chest X-Ray 05/16/20 15:56 IMPRESSION: 1. Emphysema. Intraoperative X-Ray 05/17/20 21:12 IMPRESSION: 1. Intertrochanteric fracture of proximal left femur in near-anatomic alignment status post open reduction internal fixation. Labs Labs: La
[2020-05-20 05:43] LABS: Basophils Percent Auto 0.2 % (0.2-1.2); Eosinophils Absolute Auto 0.1 K/mm3 (0-0.3); Hemoglobin 9.6 g/dL (14.0-18.0); Immature Granulocyte Absolute 0.09 K/mm3 (0.00-0.031); Immature Granulocyte Percent A 0.8 % (0-0.5); Lymphocytes Absolute Auto 0.57 K/mm3 (0.9-3.2); Lymphocytes Percent Auto 4.9 % (18.3-44.2); Mean Corpuscular HGB Conc 34.3 g/dl (32-36); Mean Corpuscular Hemoglobin 35.8 pg (26-34); Mean Corpuscular Volume 104.5 fl (80-100); Mean Platelet Volume 8.7 fl (7.4-10.4); Monocytes Absolute Auto 0.9 K/mm3 (0.1-0.6); Monocytes Percent Auto 7.3 % (2.6-8.5); Neutrophils Absolute Auto 9.9 K/mm3 (1.3-6.7); Neutrophils Percent Auto 85.8 % (45.5-73.1); Platelet Count Result 205 k/mm3 (150-375); Red Blood Count 2.68 M/mm3 (4.6-6.20); Red Cell Distribution Width 12.6 % (11.5-14.5); White Blood Count 11.6 K/mm3 (4.5-10.0)
[2020-05-20 06:02] LABS: Anion Gap 4 mmol/L (8-16); Blood Urea Nitrogen 28 mg/dL (9-20); Calcium 8.5 mg/dL (8.4-10.2); Carbon Dioxide 26 mmol/L (22-30); Chloride 104 mmol/L (98-107); Estimated CRCL calculation 27 ml/min; Estimated Glomerular Filt Rate 45; Glucose 93 mg/dL (75-110); Magnesium 1.9 mg/dL (1.6-2.3); Potassium 4.1 mmol/L (3.4-5.0); Sodium 134 mmol/L (137-145)
[2020-05-20] MEDS: LORazepam (*CRX) 1 MG TABLET PO (08:12)
[2020-05-20] MEDS: DOCUSATE SODIUM 100 MG CAPSULE PO (08:12)
[2020-05-20] MEDS: LOSARTAN POTASSIUM 25 MG TABLET PO (08:12)
[2020-05-20] MEDS: HYDROcodone/acetaminophen (*CRX) 7.5-325 MG TABLET 1 TAB PO (08:12)
[2020-05-20] MEDS: SIMVASTATIN 20 MG TABLET PO (08:12)
[2020-05-20] MEDS: FONDAPARINUX SODIUM 2.5 MG/0.5 ML SYRINGE SUB-Q (08:13)
[2020-05-20] MEDS: PANTOPRAZOLE SODIUM IV 40 MG VIAL IV PUSH (08:13)
[2020-05-20 08:15] VITALS: BP 162/78; PULSE 56; RESP 22; TEMP 36.7; O2SAT 94
[2020-05-20 09:10] VITALS: PULSE 103; RESP 20
[2020-05-20] MEDS: IPRATROPIUM BR 0.02% INH SOLN 0.5 MG/2.5 ML VIAL INHALATION (09:10)
[2020-05-20] MEDS: ALBUTEROL SULFATE NEB 2.5 MG/0.5 ML INH INHALATION (09:10)
[2020-05-20 09:20] VITALS: PULSE 107; RESP 20
--- NOTE | 2020-05-20 09:22 | PM.PNORT ---
Progress Note: A&P Assessment and Plan (1) Closed fracture of left hip: Qualifiers: Encounter type: initial encounter Qualified Code(s): S72.002A - Fracture of unspecified part of neck of left femur, initial encounter for closed fracture Code(s): S72.002A - Fracture of unspecified part of neck of left femur, initial encounter for closed fracture Status: Acute Assessment and Plan: POD #3: INSERTION OF GAMMA [place] LEFT HIP FRACTURE Continue PT/OT. NWB LLE. Change dressing prior to discharge. Change dressing daily. Continue pain control. Ice lateral hip. DVT prophylaxis. SCDs. Incentive spirometry Dispo: Home with Home Health pending progress with PT/OT and medical clearance. Follow up in 6 weeks scheduled. Subjective Subjective Date/Time Seen: 05/20/20 0845 POD #3: Left Hip Gamma Rodney No new complaints. Does not want to go to SNF. Is prepared to go home with home health. Review of Systems Constitutional: Constitutional: Denies fatigue, Denies fever(s) and Denies weakness Cardiovascular: Cardiovascular: Reports no additional cardiovascular complaints, Denies chest pain and Denies lightheadedness Respiratory: Respiratory: Denies dyspnea and Denies dyspnea on exertion Gastrointestinal: Gastrointestinal: Denies diarrhea, Denies nausea and Denies vomiting Genitourinary: Genitourinary: Reports no additional male genitourinary complaints Musculoskeletal: Musculoskeletal: Reports arthralgias (Left Hip ), Reports joint swelling (Left Hip ), Denies numbness and Denies tingling Exam Const: General: comfortable and no acute distress Resp: Effort & Inspection: normal respiratory effort Cardio: Rate: regular rate Rhythm: regular rhythm GI: Inspection: non-distended GI Palp: Yes Soft to palpation, No Tenderness to palpation present (GI) and No Guarding due to palpation present (GI) : Male General Exam: Yes normal external exam Skin: General skin exam: normal color Other: Incision left hip c/d/i Neuro: Cognition (Neuro): normal cognition Speech: normal speech Motor exam (neuro): 5/5 motor strength present throughout (decreased LLE ) Extrem: Other: Dressing left lateral hip c/d/i. 2+ pedal pulses. +ankle dorsiflexion/plantarflexion. Negative Romana's Sign. Sensation intact to light touch. ROM limited due to recent surgical intervention. Psych: Mental Status: mental status grossly normal Thought content: Yes Normal thought content present Objective Data Vital Signs Vital Signs: Vital Signs - 24 hr 05/19/20 14:00 05/19/20 14:05 05/19/20 19:54 Temperature 36.9 C Pulse Rate 94 99 113 H Respiratory Rate 22 H 18 18 Blood Pressure 131/58 L Pulse Oximetry 95 91 05/19/20 20:02 05/20/20 08:15 Temperature 36.7 C Pulse Rate 107 H 56 L Respiratory Rate 18 22 H Blood Pressure 162/78 H Pulse Oximetry 94 Intake/Output Intake/Output: Intake & Output 05/17/20 05/18/20 05/19/20 05/20/20 23:59 23:59 23:59 23:59 Intake Total 1660 1350 1550 200 Output Total 700 900 700 750 Balance 960 450 850 -550 Meds/Results Medications: Active Medications Generic Name Dose Route Start Last Admin Trade Name Freq PRN Reason Stop Dose Admin Hydrocodone Bitart/Acetaminophen 1 tab 05/17/20 15:49 05/20/20 08:12 Hydrocodone/Acetaminophen (*Crx) 7.5-325 Mg Tablet PO 1 tab Q6H PRN Administration Pain Rated 4-6 Albuterol 2.5 mg 05/19/20 20:00 05/20/20 09:10 Albuterol Sulfate Neb 2.5 Mg/0.5 Ml Inh INHALATION 2.5 mg [id number] ARIANNA Administration Budesonide/Formoterol Fumarate 2 puff 05/17/20 08:00 05/20/20 09:10 Budesonide/Form 160-4.5 Mcg (*Sp) INHALATION 2 puff Q12HRT ARIANNA Administration Diazepam 5 mg 05/17/20 15:49 Diazepam (*Crx) 5 Mg Tablet PO Q8H PRN Muscle Spasm Docusate Sodium 100 mg 05/17/20 17:00 05/20/20 08:12 Docusate Sodium 100 Mg Capsule PO 100 mg BID ARIANNA Administration Fondaparinux 2.5 mg 05/18
--- NOTE | 2020-05-20 10:40 | PM.DS ---
DS: Admitting Diagnosis Admitting Diagnosis Admitting Diagnosis: left hip fracture DS: Discharge Diagnosis Discharge Diagnosis (1) Closed fracture of left hip: Qualifiers: Encounter type: initial encounter Qualified Code(s): S72.002A - Fracture of unspecified part of neck of left femur, initial encounter for closed fracture Code(s): S72.002A - Fracture of unspecified part of neck of left femur, initial encounter for closed fracture Status: Acute Assessment and Plan: Date of Admission 05/16/20 Date of Discharge/DOS 05/20/20 Mr. Cameron is a very pleasant 80yo M with history of COPD, ongoing tobacco use, HTN, dyslipidemia, and anxiety who presented to the ED for evaluation of left hip pain and ambulatory dysfunction after a mechanical fall at home. XR demonstrated intertrochanteric fracture of proximal left femur. He was evaluated by orthopedic surgery and underwent gamma layla insertion by Dr Petersen 05/17/20. He tolerated the procedure well. He worked with PT/OT following his surgery over the weekend. Rehab was recommended for safety however patient declines. Case management has arranged home health PT/OT and family has arranged to take turns staying with him so he has someone with him 12/10. He was educated on smoking cessation as his CXR shows emphysema and he continues with wheezing and cough. He was encouraged to use his Breo inhaler daily at home and was prescribed an albuterol inhaler PRN. He is hemodynamically stable for discharge home with home health 05/20/20 with instructions to follow up with Dr Petersen's office. Per ortho, he is discharged home with Arixtra for DVT prophylaxis and [place] for pain control which he is tolerating well. Patient sustained a mechanical fall 05/16. X-ray showed intertrochanteric fracture of proximal left femur. Discharged POD#3 s/p left gamma layla insertion by Dr Petersen 05/17/20. Postoperative wound care, pain control, DVT prophylaxis per orthopedic surgery recommendations. SNF has been recommended however patient declines. Care coordination has arranged home with home health, family to take turns staying with him. (2) COPD (chronic obstructive pulmonary disease): Code(s): J44.9 - Chronic obstructive pulmonary disease, unspecified Status: Chronic Assessment and Plan: CXR shows emphysema without acute findings. Maintained on his home symbicort. Reports his breathing and cough are at his baseline. (3) Hypertension: Code(s): I10 - Essential (primary) hypertension Status: Chronic Assessment and Plan: BP stable maintained on his home losartan. (4) Hyperlipidemia: Code(s): E78.5 - Hyperlipidemia, unspecified Status: Chronic Assessment and Plan: Continue home statin therapy. (5) Tobacco abuse: Code(s): Z72.0 - Tobacco use Status: Chronic Assessment and Plan: Smoking cessation encouraged. Offered him a nicotine patch but declined at this time. Wants to quit. (6) Anxiety: Code(s): F41.9 - Anxiety disorder, unspecified Status: Chronic Assessment and Plan: Continue Ativan. DS: Summary Hospital Course Hospital Course: See above. Time Spent with Patient Time attestation: Total time spent providing and/or coordinating discharge services: 40 minutes Exam Narrative: Exam Narrative: General: Male resting supine in bed in no acute distress. HEENT: Normocephalic, EOMI, oral mucosa moist. Cardiovascular: Rate and rhythm are regular. Respiratory: REINALDO expiratory wheezes clear with a cough. Respirations even and nonlabored. Tolerating room air. Abdomen: Soft, non-tender, non-distended, faizan
[2020-05-20] MEDS: TAMSULOSIN HCL 0.4 MG CAPSULE PO (11:39)
--- NOTE | 2020-05-20 11:58 | PCNFU ---
Nutrition Follow-Up Complete: Increased protein needs as related to surgery as evidenced by left hip fx Goal: Adequate Intake of at least 75% of meals/supplements Patient is meeting current goal. No new goal. Pt current nutrition is Regular. Last recorded weight is 51.8 kg,no new weight to report. Bowel Motility:No BM reported patient is current with Colace. Labs Reviewed: Cr 1.5,NA 134,GFR 45,BUN 28 Meds Noted:Colace, Zocar,Protonix, Cozaar,Arixtra,Atrovent. Additional Notes: Patient seen today for nutrition follow up. POD 4 left hip fx. Spoke with patient and daughter. Oral intake has been good 50-90% reported. Ensure compact added BID for an additional 220 kcals and 9 gms protein. Coupons given to dtr to continue ensure after discharge. Agree with diet orders. Monitoring: weight, labs, oral intake every 7 days.
== END 2020-05-20 13:45 | disposition home health service (06) | DRG 482 ==
LOC: ANHED 16:12 → ANH2MED 16:29
PROVIDERS: Nurse Practitioner; Orthopaedic Surgery; Admitting Provider Family Medicine; Emergency Provider Emergency Medicine; PCP Family Medicine; Visit Provider Physician Assistant
PROC: 0QS736Z Reposition Left Upper Femur with Intramedullary Internal Fixation Device, Percutaneous Approach (ICD-10-PCS; CPT 27245; principal; 2020-05-17 12:45)
DX: S72.142A Displaced intertrochanteric fracture of left femur, initial encounter for closed fracture (principal); W01.0XXA Fall on same level from slipping, tripping and stumbling without subsequent striking against object, initial encounter; J43.9 Emphysema, unspecified; F17.210 Nicotine dependence, cigarettes, uncomplicated; F41.9 Anxiety disorder, unspecified; E78.5 Hyperlipidemia, unspecified; I10 Essential (primary) hypertension; Z66 Do not resuscitate; Z79.899 Other long term (current) drug therapy
CPT/HCPCS: 36415; 71045; 73502; 80048; 81001; 82271; 83735; 83986; 84443; 85025; 85610; 86850; 86900; 86901; 87086; 93005; 94640; 96374; 97110; 97116; 97161; 97530; 99285; A9270; C1713; C9113; J0131; J0330; J0690; J1652; J2270; J2370; J2405; J2704; J3010; J3475; J7030; J7120

== ENCOUNTER 2020-07-16 09:59 | Outpatient (CLI) | payer MEDICARE, SELFPAY ==
--- NOTE | ~2020-07-16 | CT_ITS ---
EXAMINATION: CT brain wo con DATE: 07/16/2020 10:21 INDICATION: Transient aphasia TECHNIQUE: Computed tomography (CT) of the chest was performed without intravenous contrast. The dose -length product was 605.33 mGy-cm. Automated exposure control and iterative reconstruction technique were employed. COMPARISON: No prior studies for comparison. FINDINGS: Generalized atrophy. There are scattered severe periventricular and subcortical white matte r changes, most likely related to small vessel ischemic disease (microangiopathy). There is intracran ial atherosclerosis. No ventriculomegaly or midline shift. Basilar cisterns are patent. No acute intr acranial hemorrhage, infarction or mass. Paranasal sinuses and mastoids are pneumatized. No depressed skull fractures. IMPRESSION: 1. No acute intracranial abnormality. 2: Chronic age-related findings. Reviewed, dictated and finalized at location B.
--- NOTE | ~2020-07-16 | US_ITS ---
EXAMINATION: US carotid duplex BI DATE: 07/16/2020 11:55 INDICATION: Aphasia. TECHNIQUE: Grayscale, color Doppler, and pulsed Doppler images of the cervical carotid arteries were obtained. The degree of vessel stenosis is placed in one of the following categories: normal, <50%, 5 0-69%, >=70% but less than near-occlusion, near-occlusion, or total occlusion. Note that percent sten osis relative to normal distal artery lumen diameter is indirectly measured from velocity measurement s as described by Quinton, et al. Radiology 2003; [id number]:[id number]. COMPARISON: None. FINDINGS: RIGHT: The right common carotid artery (CCA) peak systolic velocity (PSV) is 79 cm/s. The right internal car otid artery (ICA) PSV is 322 cm/s. The right ICA end-diastolic velocity (EDV) is 77 cm/s. The right I CA/CCA PSV ratio is 4.1. Grayscale and color Doppler images yield an estimate of >=50% diameter reduc tion from plaque in the ICA. There is antegrade flow in the right vertebral artery. LEFT: The left CCA PSV is 33 cm/s. The left ICA PSV is 18 cm/s. The left ICA EDV is 8 cm/s. The left ICA/CC A PSV ratio is 0.5. Grayscale and color Doppler images yield an estimate of >=50% diameter reduction from plaque in the ICA. Distal ICA is small. There is antegrade flow in the left vertebral artery. IMPRESSION: 1. >=70% stenosis in the right internal carotid artery, but less than near occlusion. 2. Near-occlusion stenosis of left internal carotid artery. Reviewed, dictated and finalized at location A. IMPRESSION: 1. >=70% stenosis in the right internal carotid artery, but less than near occl usion. 2. Near-occlusion stenosis of left internal carotid artery.
== END 2020-07-16 10:00 | disposition home or self-care (01) ==
PROVIDERS: PCP Family Medicine; Visit Provider Family Medicine
DX: R47.01 Aphasia (principal); I65.23 Occlusion and stenosis of bilateral carotid arteries
CPT/HCPCS: 70450; 93880

== ENCOUNTER 2020-08-03 10:54 | Inpatient (IN) | payer MEDICARE, SELFPAY ==
[2020-08-03] VITALS (9 sets, daily range): BP systolic 100–149; BP diastolic 47–87; PULSE 66–86; RESP 18–20; TEMP 36.4–36.6; O2SAT 97–100; BMI 17.9
--- NOTE | ~2020-08-03 | XR_ITS ---
EXAMINATION: XR surgery orthopedic EXAM DATE: 08/05/2020 13:09 INDICATION: Right hip gamma nail placement. TECHNIQUE: Fluoroscopy used during XR surgery orthopedic performed by Dr. Sujit Slade MD. R adiologist was not present for the imaging or procedure. Total fluoroscopic time of 107 seconds. Th e DAP for this procedure was 0.2 mGym2. A total of 6 images sent to PACS from the exam. FINDINGS: There is right hip gamma nail in expected position bridging an intertrochanteric fracture in anatomic alignment, interval reduction in the angulation seen on x-ray 2 days earlier. Correlate with procedure note. IMPRESSION: Fluoroscopy used during right hip gamma nail insertion. Reviewed, dictated and finalized at location A.
--- NOTE | ~2020-08-03 | XR_ITS ---
XR hip RT min 3V w AP pelvis DATE: 08/03/2020 11:30 INDICATION: Fall. Right hip pain. TECHNIQUE: AP pelvis. AP, lateral, crosstable lateral views of right hip COMPARISON: 07/04/2020 pelvis and left hip FINDINGS: There is a comminuted minimally displaced intertrochanteric fracture of the right femur wit h varus angulation. Diffuse osteopenia. The pubic symphysis and sacroiliac joints are intact. Compression screw and intramedullary layla of proximal left femur. Severe abdominal aortic, iliac and femoral artery calcifications; no evidence of aneurysm of included distal abdominal aorta. IMPRESSION: Comminuted intertrochanteric minimally displaced right hip fracture with varus angulation Reviewed, dictated and finalized at location A.
--- NOTE | ~2020-08-03 | XR_ITS ---
XR chest 1V portable DATE: 08/03/2020 21:20 INDICATION: Preoperative evaluation. COPD. Smoker. Hypertension. TECHNIQUE: Portable AP chest on 08/03/2020 at 2115 hours COMPARISON: 05/16/2020 portable AP chest at 1538 hours FINDINGS: Bilateral hyperinflation and flattening of the diaphragm consistent with COPD. Prominent central pulmonary arteries suggesting pulmonary hypertension. 5 mm nodular density overlies lateral left mid-upper lung. CT thorax is recommended. No pulmonary infiltrate or consolidation, pleural effusion or pulmonary vascular congestion or pneumo thorax is evident. Heart size appears within normal range. Is aortic calcification and mild unfolding. Bilateral thoracic pedicle screws and spinal rods are again noted. Diffuse osteopenia. IMPRESSION: COPD, suggestion of pulmonary hypertension 5 mm nodular density overlying the lateral mid to upper left lung; CT thorax is recommended for possi ble lung mass. Reviewed, dictated and finalized at location A. IMPRESSION: COPD, suggestion of pulmonary hypertension 5 mm nodular density overlying the lateral mid to upper left lung; CT thorax is recommended for possible lung mass.
--- NOTE | ~2020-08-03 | XR_ITS ---
EXAMINATION: XR chest 1V portable DATE: 08/08/2020 05:34 INDICATION: Cough. TECHNIQUE: A single frontal view of the chest was obtained. COMPARISON: Chest single view 08/03/2020 FINDINGS: The patient is rotated to his right. The lungs are hyperexpanded. There are mild airspace o pacities in the mid and lower lung zones. No pleural effusion or pneumothorax. The heart size is norm al. There are changes of posterior fusion procedure in thoracic spine. IMPRESSION: 1. Mild airspace opacities in the mid and lower lung zones, consistent with atelectasis/scarring vers us pneumonia. 2. Hyperexpanded lungs, consistent with chronic obstructive pulmonary disease. Reviewed, dictated and finalized at location A. IMPRESSION: 1. Mild airspace opacities in the mid and lower lung zones, consistent with ate lectasis/scarring versus pneumonia. 2. Hyperexpanded lungs, consistent with chronic obstructive pulmonary disease.
--- NOTE | 2020-08-03 11:13 | ECG_ITS ---
Measurements Intervals [place] Rate: 71 P: 75 IA: 131 QRS: 84 QRSD: 123 T: 47 QT: 404 QTc: 440 Interpretive Statements SINUS RHYTHM RIGHT BUNDLE BRANCH BLOCK BASELINE ARTIFACT- V1-V2 ABNORMAL ECG Electronically Signed On 08-03-2020 13:19:40 CDT by Rogerio Mueller D.O.
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
[2020-08-03] MEDS: MORPHINE SULFATE (*CRX) 4 MG/ML INJ IV PUSH ×2 (11:17→14:14)
[2020-08-03] MEDS: ONDANSETRON INJ 4 MG/2 ML VIAL IV PUSH (11:17)
[2020-08-03 12:05] LABS: Add Urine Microscopic? YES; Appearance Urine Cloudy (Clear); Bacteria Urine Trace /hpf; Bilirubin Urine Negative (Negative); Blood Urine 3+ (Negative); Color Urine Yellow (Yellow); Glucose Urine UA Negative (Negative); Hyaline Casts Urine 20-29 /lpf; Ketones Urine Negative (Negative); Leukocyte Esterase Ur 1+ LEU/UL (Negative); Mucus Urine Rare /lpf; Nitrate Urine Negative (Negative); Protein Urine 2+ mg/dL (Negative); RBC Urine >75 /hpf (0-2); Specific Grav Ur 1.025 (1.001-1.035); Squamous Epithelial Cell Urine Rare /hpf (Few); WBC Urine 21-30 /hpf
[2020-08-03 12:35] LABS: Basophils Percent Auto 0.4 % (0.2-1.2); Eosinophils Percent Auto 0.3 % (0-4.4); Hematocrit 24.9 % (42.0-52.0); Hemoglobin 8.1 g/dL (14.0-18.0); Immature Granulocyte Absolute 0.06 K/mm3 (0.00-0.031); Immature Granulocyte Percent A 0.6 % (0-0.5); Lymphocytes Absolute Auto 0.51 K/mm3 (0.9-3.2); Lymphocytes Percent Auto 5.1 % (18.3-44.2); Mean Corpuscular HGB Conc 32.5 g/dl (32-36); Mean Corpuscular Hemoglobin 35.4 pg (26-34); Mean Corpuscular Volume 108.7 fl (80-100); Mean Platelet Volume 8.7 fl (7.4-10.4); Monocytes Absolute Auto 0.7 K/mm3 (0.1-0.6); Monocytes Percent Auto 6.7 % (2.6-8.5); Neutrophils Absolute Auto 8.7 K/mm3 (1.3-6.7); Neutrophils Percent Auto 86.9 % (45.5-73.1); Platelet Count Result 234 k/mm3 (150-375); Red Blood Count 2.29 M/mm3 (4.6-6.20); Red Cell Distribution Width 15.7 % (11.5-14.5)
[2020-08-03] MEDS: SODIUM CHLORIDE 0.9% IV 500 ML 999 ML IV CONT (12:40)
[2020-08-03] MEDS: HYDROmorphone HCL INJ (*CRX) 1 MG/ML SYR 0.5 MG IV PUSH (12:40)
[2020-08-03 12:46] LABS: Anion Gap 0 mmol/L (8-16); Blood Urea Nitrogen 17 mg/dL (9-20); Calcium 8.4 mg/dL (8.4-10.2); Carbon Dioxide 30 mmol/L (22-30); Chloride 107 mmol/L (98-107); Estimated CRCL calculation 31 ml/min; Estimated Glomerular Filt Rate 53; Glucose 93 mg/dL (75-110); Sodium 137 mmol/L (137-145)
--- NOTE | 2020-08-03 12:49 | PC.NURSE ---
Patient noted to be 78% on room air, placed on NC at 3 Li at this time. Yancy notified.
--- NOTE | 2020-08-03 15:15 | ADMGEN ---
This patient, Pablito Cameron, was admitted to Medical Room 248-. Patient/family oriented to hospital policies and general routines including ID bracelet, bed and alarms, visiting hours, pain management, procedures, bathroom and other care routines, personal items, smoking policy, room service/diet, and visiting hours. Information on how to activate the Rapid Response Team has been discussed. Patient/Family are encouraged to report perceived risks to care and to ask questions if they do not understand what they are told or what they should do.
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
[2020-08-03] MEDS: HYDROcodone/acetaminophen (*CRX) 5-325 MG TABLET 1 TAB PO ×2 (16:48→22:26)
[2020-08-03] MEDS: oxyCODONE HCL (*CRX) 5 MG TAB IR PO (21:07)
[2020-08-03 21:30] LABS: Hematocrit 23.1 % (42.0-52.0); Hemoglobin 7.4 g/dL (14.0-18.0)
[2020-08-03 21:34] LABS: Immature Reticulocyte Fraction 19.3 % (3.0-15.9); Reticulocyte Hemoglobin Conten 35.6 pg (28.2-35.7); Reticulocyte Percent 2.72 % (0.7-4.3); Reticulocytes Absolute 0.06 B/L (32.2-175.7)
[2020-08-03 21:51] LABS: Iron 20 ug/dL (49-181)
[2020-08-03 22:00] LABS: Percent Iron Saturation 9 % (20-50)
[2020-08-03] MEDS: TAMSULOSIN HCL 0.4 MG CAPSULE PO (22:26)
[2020-08-03 22:46] LABS: Folic Acid 18.8 ng/mL (2.76->20)
[2020-08-04] VITALS: BP 129/65; PULSE 72; RESP 16; TEMP 36.9; O2SAT 95
[2020-08-04] MEDS: oxyCODONE HCL (*CRX) 5 MG TAB IR PO ×2 (05:04→13:51)
[2020-08-04 05:57] LABS: Free T4 Free Thyroxine Reflex 1.07 ng/dL (0.78-2.19)
[2020-08-04 06:00] VITALS: BP 131/50; PULSE 82; RESP 18; TEMP 36.9; O2SAT 94
[2020-08-04 06:08] LABS: Hematocrit 22.3 % (42.0-52.0); Hemoglobin 7.1 g/dL (14.0-18.0); Mean Corpuscular HGB Conc 31.8 g/dl (32-36); Mean Corpuscular Hemoglobin 34.1 pg (26-34); Mean Corpuscular Volume 107.2 fl (80-100); Mean Platelet Volume 8.6 fl (7.4-10.4); Platelet Count Result 217 k/mm3 (150-375); Red Blood Count 2.08 M/mm3 (4.6-6.20); Red Cell Distribution Width 15.5 % (11.5-14.5); White Blood Count 6.1 K/mm3 (4.5-10.0)
[2020-08-04 06:17] LABS: Alanine Aminotransferase 6 U/L (4-50); Albumin Level 2.7 g/dL (3.5-5.1); Alkaline Phosphatase 80 U/L (38-126); Anion Gap -1 mmol/L (8-16); Aspartate Amino Transferase 16 U/L (17-59); Bilirubin,Total 0.2 mg/dL (0.2-1.3); Blood Urea Nitrogen 19 mg/dL (9-20); Calcium 8.6 mg/dL (8.4-10.2); Carbon Dioxide 29 mmol/L (22-30); Chloride 108 mmol/L (98-107); Estimated CRCL calculation 31 ml/min; Estimated Glomerular Filt Rate 53; Glucose 101 mg/dL (75-110); Magnesium 1.8 mg/dL (1.6-2.3); Potassium 4.4 mmol/L (3.4-5.0); Sodium 136 mmol/L (137-145)
[2020-08-04 07:08] LABS: Total Triiodothyronine (T3) 0.57 NG/ML (0.97-1.69)
[2020-08-04 08:01] VITALS: O2SAT 95
[2020-08-04] MEDS: SIMVASTATIN 20 MG TABLET PO (09:39)
[2020-08-04] MEDS: LORazepam (*CRX) 1 MG TABLET PO (09:39)
[2020-08-04] MEDS: LOSARTAN POTASSIUM 25 MG TABLET PO (09:40)
--- NOTE | 2020-08-04 11:26 | PM.IMPN ---
Progress Note: A&P Assessment and Plan (1) Closed intertrochanteric fracture of right hip: Qualifiers: Encounter type: initial encounter Fracture alignment: displaced Qualified Code(s): S72.141A - Displaced intertrochanteric fracture of right femur, initial encounter for closed fracture Code(s): S72.141A - Displaced intertrochanteric fracture of right femur, initial encounter for closed fracture Status: Acute Assessment and Plan: Sustained a mechanical fall earlier today. 08/04 Regular diet, then NPO after midnight for probable surgery in a.m. per Dr. Slade. (2) Macrocytic anemia: Code(s): D53.9 - Nutritional anemia, unspecified Status: Acute Assessment and Plan: Iron studies, B12, and folate c/w ACD Drop in H/H from baseline likely due to acute blood loss related to right hip fx (3) Abnormal urinalysis: Code(s): R82.90 - Unspecified abnormal findings in urine Status: Acute Assessment and Plan: No signs or symptoms to suggest underlying infection. He has had a Berry catheter in place for nearly 5 days due to urinary retention with most recent hospitalization. No indication for antibiotics at this time. (4) Status post carotid endarterectomy: Code(s): Z98.890 - Other specified postprocedural states Status: Acute Assessment and Plan: Post left carotid endarterectomy on 07/29/2020. (5) Chronic kidney disease, stage 3: Code(s): N18.30 - Chronic kidney disease, stage 3 unspecified Status: Acute Assessment and Plan: Creatinine is stable (6) Hypertension: Code(s): I10 - Essential (primary) hypertension Status: Chronic Assessment and Plan: No home antihypertensives listed BP soft due to anemia, analgesics, bedrest Continue to monitor (7) Hyperlipidemia: Code(s): E78.5 - Hyperlipidemia, unspecified Status: Chronic Assessment and Plan: Continue statin. (8) COPD with emphysema: Code(s): J43.9 - Emphysema, unspecified Status: Acute Assessment and Plan: No acute issues. Continue maintenance inhalers, prn oxygen (9) Tobacco abuse: Code(s): Z72.0 - Tobacco use Status: Chronic Assessment and Plan: Smoking cessation is encouraged, but he does not seem interested Subjective Date/time seen: 08/04/20 11:26 Interval history: Fell 08/03 after receiving COVID-19 vaccination. 08/04: Hungry. Denied pain unless he moves RLE. Chronic DAS with ADL's stable. Smokes about 7 small cigars daily. Does not wear home oxygen. S/P recent left CEA. Exam Narrative: Exam Narrative: HEENT: PERRL, sclerae nonicteric, pharyngeal mucosa pink and intact NECK: No JVD CHEST: Increased APD. DIFFUSE RHONCHI WITH SCATTERED WHEEZES. Normal effort. HEART: NL S1/S2, regular, no murmur ABDOMEN: BS+, soft, nontender, no mass, no bruits EXTREMITIES: No cyanosis, edema, or clubbing. 1+ PEDAL PULSES NEUROLOGIC: CN intact and symmetric to inspection. MUSCULOSKELETAL: Tone and strength symmetric. PSYCH: Alert. Oriented to person, place, and time. Objective Data Vital Signs Vital Signs: Vital Signs - 24 hr 08/03/20 11:47 08/03/20 12:49 08/03/20 13:10 Temperature 97.6 F 97.6 F Pulse Rate 76 Respiratory Rate 20 Blood Pressure 120/59 L Pulse Oximetry 99 08/03/20 13:58 08/03/20 14:43 08/03/20 14:44 Temperature 97.6 F Pulse Rate 69 70 Respiratory Rate 18 18 Blood Pressure 109/47 L 136/69 Pulse Oximetry 100 97 08/03/20 15:01 08/03/20 22:00 08/04/20 00:00 Temperature 97.9 F 98.5 F Pulse Rate 69 66 72 Respiratory Rate 18 18 16 Blood Pressure 125/59 L 100/53 L 129/65 Pulse Oximetry 99 97 95 08/04/20 06:00 08/04/20 08:01 Temperature 98.5 F Pulse Rate 82 Respiratory Rate 18 Blood Pressure 131/50 L Pulse Oximetry 94 95 Intake/Output Intake/Output: Intake & Output 08/01/20 08/02/20 08/03/20
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
[2020-08-04 14:00] VITALS: BP 118/53; PULSE 63; RESP 14; TEMP 36.6; O2SAT 100
[2020-08-04 20:00] VITALS: PULSE 71; RESP 16; O2SAT 96
[2020-08-04] MEDS: TAMSULOSIN HCL 0.4 MG CAPSULE PO (20:41)
[2020-08-04 21:38] VITALS: BP 148/54; PULSE 71; RESP 16; TEMP 36.3; O2SAT 96
[2020-08-05] VITALS (17 sets, daily range): BP systolic 144–175; BP diastolic 58–118; PULSE 81–112; RESP 16–27; TEMP 36.4–37.6; O2SAT 90–100
[2020-08-05] MEDS: HYDROcodone/acetaminophen (*CRX) 5-325 MG TABLET 1 TAB PO ×2 (02:22→20:20)
[2020-08-05 05:48] LABS: Hematocrit 21.9 % (42.0-52.0); Mean Corpuscular Volume 106.3 fl (80-100); Mean Platelet Volume 8.6 fl (7.4-10.4); Platelet Count Result 230 k/mm3 (150-375); Red Blood Count 2.06 M/mm3 (4.6-6.20); Red Cell Distribution Width 14.9 % (11.5-14.5)
[2020-08-05 06:11] LABS: Anion Gap 2 mmol/L (8-16); Blood Urea Nitrogen 19 mg/dL (9-20); Calcium 8.8 mg/dL (8.4-10.2); Carbon Dioxide 28 mmol/L (22-30); Chloride 105 mmol/L (98-107); Estimated CRCL calculation 33 ml/min; Estimated Glomerular Filt Rate 59; Glucose 99 mg/dL (75-110); Potassium 4.2 mmol/L (3.4-5.0); Sodium 135 mmol/L (137-145)
[2020-08-05] MEDS: LOSARTAN POTASSIUM 25 MG TABLET PO (08:03)
[2020-08-05] MEDS: SIMVASTATIN 20 MG TABLET PO (08:03)
[2020-08-05] MEDS: LORazepam (*CRX) 1 MG TABLET PO (08:03)
--- NOTE | 2020-08-05 10:36 | PM.IMPN ---
Progress Note: A&P Assessment and Plan (1) Closed intertrochanteric fracture of right hip: Qualifiers: Encounter type: initial encounter Fracture alignment: displaced Qualified Code(s): S72.141A - Displaced intertrochanteric fracture of right femur, initial encounter for closed fracture Code(s): S72.141A - Displaced intertrochanteric fracture of right femur, initial encounter for closed fracture Status: Acute Assessment and Plan: Sustained a mechanical fall earlier today. Pt is medically cleared for surgery today. Pt has been Npo from midnight. (2) Macrocytic anemia: Code(s): D53.9 - Nutritional anemia, unspecified Status: Acute Assessment and Plan: Continue to monitor CBC, hb low at 7. Orthopedics aware. (3) Abnormal urinalysis: Code(s): R82.90 - Unspecified abnormal findings in urine Status: Acute Assessment and Plan: He has had a Berry catheter in place for nearly 5 days due to urinary retention with most recent hospitalization. No indication for antibiotics at this time. (4) Status post carotid endarterectomy: Code(s): Z98.890 - Other specified postprocedural states Status: Acute Assessment and Plan: Post left carotid endarterectomy on 07/29/2020. (5) Chronic kidney disease, stage 3: Code(s): N18.30 - Chronic kidney disease, stage 3 unspecified Status: Acute Assessment and Plan: Creatinine is stable, Creat is 1.2 (6) Hypertension: Code(s): I10 - Essential (primary) hypertension Status: Chronic Assessment and Plan: Continue to monitor, unclear if pt is on any BP medications (7) Hyperlipidemia: Code(s): E78.5 - Hyperlipidemia, unspecified Status: Chronic Assessment and Plan: Continue statin. (8) COPD with emphysema: Code(s): J43.9 - Emphysema, unspecified Status: Acute Assessment and Plan: No acute issues. Continue maintenance inhalers, prn oxygen (9) Tobacco abuse: Code(s): Z72.0 - Tobacco use Status: Chronic Assessment and Plan: Smoking cessation is adviced pt is not asking for nicotine patch here in the hospital. (10) Hypothyroidism: Code(s): E03.9 - Hypothyroidism, unspecified Status: Acute Assessment and Plan: TSH is high, T3 is low continue to watch. Subjective Date/time seen: 08/05/20 10:36 Interval history: Fell 08/03 after receiving COVID-19 vaccination. Pt has history of smoking with COPD/emphysema, hypertension, hyperlipidemia, benign prostatic hyperplasia currently with an indwelling Berry catheter, chronic kidney disease stage 3, chronic anemia, and right carotid artery disease status post recent left carotid endarterectomy. Pt sustained for closed intertrochanteric fracture of right hip and is going for surgery today. Review of Systems Review of Systems: All systems reviewed & are unremarkable except as noted in HPI and below Exam Narrative: Exam Narrative: GENERAL: Weak frail and thin HEENT: PERRLA NECK: No JVD CHEST: Clear lungs frail and thin lungs HEART: NL S1/S2, regular, no murmur ABDOMEN: BS+, soft, nontender, no mass, no bruits EXTREMITIES TTP over R hip pulses and sensation good NEUROLOGICAL: intact PSYCH: Alert. Oriented to person, place, and time. Objective Data Vital Signs Vital Signs: Vital Signs - 24 hr 08/04/20 14:00 08/04/20 20:00 08/04/20 21:38 Temperature 36.6 C 36.3 C L Pulse Rate 63 71 71 Respiratory Rate 14 16 16 Blood Pressure 118/53 L 148/54 H Pulse Oximetry 100 96 96 08/05/20 05:23 Temperature 36.6 C Pulse Rate 88 Respiratory Rate 16 Blood Pressure 147/64 H Pulse Oximetry 91 Intake/Output Intake/Output: Intake & Output 08/02/20 08/03/20 08/04/20 08/05/20 23:59 23:59 23:59 23:59 Intake Total 700 350 100 Output Total 100 500 400 Balance 600 -150 -300 Meds/Results Medications: Acti
--- NOTE | 2020-08-05 10:40 | PC.NURSE ---
To OR per tiffany, IV 20 left hand. Report given to Emili ZUNIGA.
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
[2020-08-05] MEDS: TRANEXAMIC ACID 1,000MG/ISO100 1,000 MG/100 ML BAG 200 MG IVPB (11:34)
[2020-08-05] MEDS: SODIUM CHLORIDE 0.9% IV 250 ML 30 ML IV CONT (11:44)
--- NOTE | 2020-08-05 11:53 | P.HPUP_ITS ---
History and Physical Update Update Date/Time: 08/05/20 11:53 Patient seen and examined. Agree with assessment of Jojo Parson PA-C. Discussed findings with the patient and his daughter. Discussed the significant risks, benefits, and alternatives of surgery. History and Physical has been reviewed, including an updated exam of the patient. There are NO changes in the patient's condition. Risks, benefits, and alternatives have been discussed and questions answered. Jm croft agrees to proceed with procedure.
[2020-08-05] MEDS: ceFAZolin 2 GM/D5W 50 ML 2 GM/50 ML BAG IVPB (12:10)
[2020-08-05] MEDS: LACTATED RINGERS 1,000 ML 30 ML IV CONT (13:41)
--- NOTE | 2020-08-05 15:45 | PC.NURSE ---
Returned from OR per stretcher. Report received from Kera, returned on 3LNC, Dressing to right hip CDI.
[2020-08-05] MEDS: KCL 20 MEQ/D5/0.45% SOD CHL 1,000 ML 80 ML IV CONT (16:29)
--- NOTE | 2020-08-05 16:31 | PM.PROC ---
Procedure Note - Detailed Date of procedure: 08/05/20 Pre-op diagnosis: right intertrochanteric hip fractures Post-op diagnosis: same Procedure performed: ORIF right hip fracture with cephalomedullary nail. Implants: Jessica Gamma nail, 95mm lag screw. Anesthesia: GETA Surgeon: Sujit Slade MD Information Assurance Officer: Jojo Parson PA-C Estimated blood loss (mL): 50 Drains: No Complications: None Condition: stable Findings: Physician oceanographer assistant necessary for patient positioning on the fracture table; assistance with fracture reduction and maintenance of bony apposition during the reaming and nail placement; maintaining a dry surgical field; closure of the deep and superficial wounds; assisting transfer of the patient off of the fracture table. Operative details. The patient was given a general anesthetic, then carefully placed in fracture table. Sterile prep and drape performed in the usual fashion. Sterile curtain was used. Gentle traction was utilized to reduce the fracture. Fluoroscopy was used to confirm anatomic reduction and a proper placement of the implants. A longitudinal incision was created at the tip of the trochanter. The deep fascia was incised. The cannulated awl was used to open the proximal femur. The guidewire was placed across the fracture. The reamer was used to open the canal. The gamma nail was placed across the fracture site. A separate incision was made for placement of the cannulated guide sleeve. The guide pin was placed in the center of the femoral head, slightly inferior. Appropriate measurement was taken. The pin was over reamed. The screw was placed with excellent purchase. The set screw was placed proximally and backed out a quater turn. Distal locking was accomplished through the jig. The jig was removed. The wounds were irrigated. The deep fascia was closed with #1 Vicryl suture followed by 2-0 Vicryl suture and jenifer. Sterile dressing was applied. The patient was transferred to the recovery room in stable condition. There were no complications.
[2020-08-05] MEDS: DOCUSATE SODIUM 100 MG CAPSULE PO (16:52)
[2020-08-05] MEDS: TAMSULOSIN HCL 0.4 MG CAPSULE PO (20:09)
[2020-08-06] VITALS (8 sets, daily range): BP systolic 131–153; BP diastolic 61–89; PULSE 65–88; RESP 16–18; TEMP 36.2–36.8; O2SAT 90–95; BMI 17.9; BMI 10.0
[2020-08-06 05:45] LABS: Hematocrit 30.5 % (42.0-52.0); Hemoglobin 10.2 g/dL (14.0-18.0); Mean Corpuscular HGB Conc 33.4 g/dl (32-36); Mean Corpuscular Hemoglobin 33.1 pg (26-34); Mean Platelet Volume 8.6 fl (7.4-10.4); Platelet Count Result 202 k/mm3 (150-375); Red Blood Count 3.08 M/mm3 (4.6-6.20); Red Cell Distribution Width 17.2 % (11.5-14.5); White Blood Count 8.9 K/mm3 (4.5-10.0)
[2020-08-06 05:58] LABS: Anion Gap 2 mmol/L (8-16); Blood Urea Nitrogen 23 mg/dL (9-20); Calcium 8.5 mg/dL (8.4-10.2); Carbon Dioxide 27 mmol/L (22-30); Chloride 102 mmol/L (98-107); Estimated CRCL calculation 36 ml/min; Estimated Glomerular Filt Rate > 60; Glucose 102 mg/dL (75-110); Potassium 4.7 mmol/L (3.4-5.0); Sodium 131 mmol/L (137-145)
[2020-08-06] MEDS: SIMVASTATIN 20 MG TABLET PO (08:32)
[2020-08-06] MEDS: oxyCODONE HCL (*CRX) 5 MG TAB IR PO ×4 (08:32→20:52)
[2020-08-06] MEDS: DOCUSATE SODIUM 100 MG CAPSULE PO ×2 (08:32→16:45)
[2020-08-06] MEDS: ENOXAPARIN 30 MG/0.3 ML SYRINGE SUB-Q (08:32)
[2020-08-06] MEDS: LOSARTAN POTASSIUM 25 MG TABLET PO (08:32)
[2020-08-06] MEDS: LORazepam (*CRX) 1 MG TABLET PO (08:33)
--- NOTE | 2020-08-06 08:52 | WPDANESPN ---
Anes - Prog Note Post-Op Date/Time: 08/06/20 08:52 Cardiovascular status: normal Respiratory status: normal Airway patency: baseline Mental status: baseline Post-Op hydration status: normal Vital Signs: Last Vital Signs Temp 36.6 C 08/06/20 04:22 Pulse 65 08/06/20 04:22 Resp 16 08/06/20 04:22 BP 153/70 H 08/06/20 04:22 Pulse Ox 93 08/06/20 04:22 Pain Score (VAS): 0 I/O: Intake & Output 08/05/20 08/06/20 08/06/20 23:59 07:59 15:59 Intake Total 300 700 Output Total 640 452 Balance -340 248 Laboratory Tests 08/06/20 05:18 08/06/20 05:18 08/03/20 08/06/20 08/06/20 21:19 05:18 05:18 WBC 8.9 RBC 3.08 L Hgb 10.2 L D Hct 30.5 L MCV 99.0 D MCH 33.1 MCHC 33.4 RDW 17.2 H Plt Count 202 MPV 8.6 Sodium 131 L Potassium 4.7 Chloride 102 Carbon Dioxide 27 Anion Gap 2 L BUN 23 H Creatinine 1.10 Estim Creat Clear Calc 36 Estimated GFR > 60 Glucose 102 Calcium 8.5 Blood Type O Positive Antibody Screen Negative Crossmatch See Detail Post-procedural complaints: none Patient Feedback: Patient satisfied with anesthetic care.
--- NOTE | 2020-08-06 13:39 | PM.IMPN ---
Progress Note: A&P Assessment and Plan (1) Closed intertrochanteric fracture of right hip: Qualifiers: Encounter type: initial encounter Fracture alignment: displaced Qualified Code(s): S72.141A - Displaced intertrochanteric fracture of right femur, initial encounter for closed fracture Code(s): S72.141A - Displaced intertrochanteric fracture of right femur, initial encounter for closed fracture Status: Acute Assessment and Plan: Sustained a mechanical fall earlier today. Sp surgery (2) Macrocytic anemia: Code(s): D53.9 - Nutritional anemia, unspecified Status: Acute Assessment and Plan: Continue to monitor CBC, hb is 10 (3) Abnormal urinalysis: Code(s): R82.90 - Unspecified abnormal findings in urine Status: Acute Assessment and Plan: Berry catheter removed (4) Status post carotid endarterectomy: Code(s): Z98.890 - Other specified postprocedural states Status: Acute Assessment and Plan: Post left carotid endarterectomy on 07/29/2020. (5) Chronic kidney disease, stage 3: Code(s): N18.30 - Chronic kidney disease, stage 3 unspecified Status: Acute Assessment and Plan: Creatinine is stable, Creat is 1.1 (6) Hypertension: Code(s): I10 - Essential (primary) hypertension Status: Chronic Assessment and Plan: Continue to monitor, unclear if pt is on any BP medications (7) Hyperlipidemia: Code(s): E78.5 - Hyperlipidemia, unspecified Status: Chronic Assessment and Plan: Continue statin. (8) COPD with emphysema: Code(s): J43.9 - Emphysema, unspecified Status: Acute Assessment and Plan: No acute issues. Continue maintenance inhalers, prn oxygen (9) Tobacco abuse: Code(s): Z72.0 - Tobacco use Status: Chronic Assessment and Plan: Smoking cessation is adviced pt is not asking for nicotine patch here in the hospital. (10) Hypothyroidism: Code(s): E03.9 - Hypothyroidism, unspecified Status: Acute Assessment and Plan: TSH is high, T3 is low continue to watch. start levothyroxine Subjective Date/time seen: 08/06/20 13:39 Interval history: Fell 15 after receiving COVID-19 vaccination. Pt has history of smoking with COPD/emphysema, hypertension, hyperlipidemia, benign prostatic hyperplasia currently with an indwelling Berry catheter, chronic kidney disease stage 3, chronic anemia, and right carotid artery disease status post recent left carotid endarterectomy. Pt sustained for closed intertrochanteric fracture of right hip SP ORIF right hip fracture with cephalomedullary nail. Pt states he has some r hip pain. Review of Systems Review of Systems: All systems reviewed & are unremarkable except as noted in HPI and below Exam Narrative: Exam Narrative: GENERAL: Weak frail and thin HEENT: PERRLA NECK: No JVD CHEST: Clear lungs frail and thin lungs HEART: NL S1/S2, regular, no murmur ABDOMEN: BS+, soft, nontender, no mass, no bruits EXTREMITIES: Fresh incision of R hip with occlusive dressing NEUROLOGICAL: intact PSYCH: Alert. Oriented to person, place, and time. Objective Data Vital Signs Vital Signs: Vital Signs - 24 hr 08/05/20 13:41 08/05/20 13:55 08/05/20 14:10 Temperature 36.4 C L Pulse Rate 109 H 112 H 101 H Respiratory Rate 27 H 27 H 26 H Blood Pressure 158/101 H 175/118 H 174/82 H Pulse Oximetry 100 99 100 08/05/20 14:25 08/05/20 14:40 08/05/20 14:55 Temperature 37.6 C Pulse Rate 105 H 91 96 Respiratory Rate 23 H 23 H 17 Blood Pressure 156/82 H 158/71 H 159/84 H Pulse Oximetry 90 92 95 08/05/20 15:10 08/05/20 15:25 08/05/20 16:06 Temperature 36.8 C Pulse Rate 86 81 95 Respiratory Rate 20 22 H 16 Blood Pressure 156/69 H 154/76 H 160/88 H Pulse Oximetry 91 98 95 08/05/20 16:21 08/05/20 16:40 08/05/20 16:51 Temperature 37.1 C 36.7 C
--- NOTE | 2020-08-06 14:36 | PM.PNORT ---
Progress Note: A&P Assessment and Plan (1) Closed intertrochanteric fracture of right hip: Qualifiers: Encounter type: initial encounter Fracture alignment: displaced Qualified Code(s): S72.141A - Displaced intertrochanteric fracture of right femur, initial encounter for closed fracture Code(s): S72.141A - Displaced intertrochanteric fracture of right femur, initial encounter for closed fracture Status: Acute Assessment and Plan: POD#1 Right ORIF intertrochanteric femur fracture with gamma nail. Patient progressing well. Pain tolerable with pain medication. Plan for discharge home with family and home health. He states that he will have one of his 5 kids with him at all times. He refuses SNF or Rehab. WBAT with walker. Subjective Subjective Date/Time Seen: 08/06/20 14:36 POD#1 Right ORIF intertrochanteric femur fracture with gamma nail. Patient is currently resting comfortably in bed. Pain is tolerable with pain medications. Calf nontender. No numbness or tingling in his feet. States his pain is intermittent. 80-year-old male presented to the ER 08/03 after falling in his home. He was found to have a right intertrochanteric femur fracture. Patient states he was using a cane in 1 hand and holding a cup of coffee in the other and he lost his balance and fell. He did not hit his head, loose consciousness, or sustain any other injuries. He lives at home with his daughter. He states he is not allowed to stay at home by himself and typically has 1 of his 5 kids with him 12/10. Typically ambulates with a cane. Patient has a history of COPD/emphysema, hypertension, hyperlipidemia, benign prostatic hyperplasia currently with an indwelling Berry catheter, chronic kidney disease stage 3, chronic anemia, and right carotid artery disease status post recent left carotid endarterectomy last week. Patient smokes. History of contralateral hip fracture May 17, 2020 treated with gamma nail by Dr. Petersen. Review of Systems Review of Systems: All systems reviewed & are unremarkable except as noted in HPI and below Exam Narrative: Exam Narrative: 80-year-old male. Patient is alert and oriented. Resting comfortably in bed. No acute distress. No erythema or ecchymosis. No rashes or lesions noted. Warm, normal appearing skin. Dressing dry and intact with slight drainage. Tenderness at right hip. Calf nontender. Distal pulses palpable. Normal capillary refill. Patient able to move and wiggle toes. Light touch sensation intact. Berry catheter in place. Objective Data Vital Signs Vital Signs: Vital Signs - 24 hr 08/05/20 14:40 08/05/20 14:55 08/05/20 15:10 Temperature Pulse Rate 91 96 86 Respiratory Rate 23 H 17 20 Blood Pressure 158/71 H 159/84 H 156/69 H Pulse Oximetry 92 95 91 08/05/20 15:25 08/05/20 16:06 08/05/20 16:21 Temperature 98.3 F 98.7 F Pulse Rate 81 95 92 Respiratory Rate 22 H 16 18 Blood Pressure 154/76 H 160/88 H 164/80 H Pulse Oximetry 98 95 98 08/05/20 16:40 08/05/20 16:51 08/05/20 17:51 Temperature 98.1 F 97.9 F Pulse Rate 84 89 Respiratory Rate 20 18 Blood Pressure 164/80 H 154/63 H Pulse Oximetry 96 99 97 08/05/20 19:53 08/05/20 20:00 08/06/20 00:26 Temperature 98.0 F 97.8 F Pulse Rate 81 66 Respiratory Rate 16 16 Blood Pressure 144/58 H 150/66 H Pulse Oximetry 98 98 95 08/06/20 04:22 08/06/20 09:50 08/06/20 10:00 Temperature 97.9 F 97.2 F L Pulse Rate 65 88 Respiratory Rate 16 18 Blood Pressure 153/70 H 141/89 H Pulse Oximetry 93 90 95 08/06/20 13:59 Temperature 98.1 F Pulse Rate 79 Respiratory Rate 18 Blood Pressure 142/61 H Pulse Oximetry 91 Intake/Output Intake/Output: Intake & Output 08/03/20 08/04/20 08/05/20 08/06/20 23:59 23:59 23:59 23:59 Intake Total 749 902 0283 700 Output Total 063 636 3115 452 Balance 600 -150 600 248 Meds/Results Medications: Active Medications Generic Name Dose Ro
[2020-08-06] MEDS: TAMSULOSIN HCL 0.4 MG CAPSULE PO (20:55)
[2020-08-07] VITALS (13 sets, daily range): BP systolic 86–152; BP diastolic 46–84; PULSE 64–120; RESP 16–24; TEMP 36.1–36.8; O2SAT 93–97
[2020-08-07] MEDS: LEVOTHYROXINE SODIUM 25 MCG TABLET PO (05:59)
[2020-08-07] MEDS: LORazepam (*CRX) 1 MG TABLET PO (08:10)
[2020-08-07] MEDS: oxyCODONE HCL (*CRX) 5 MG TAB IR PO ×2 (08:10→16:37)
[2020-08-07] MEDS: LOSARTAN POTASSIUM 25 MG TABLET PO (08:11)
[2020-08-07] MEDS: ENOXAPARIN 30 MG/0.3 ML SYRINGE SUB-Q (08:11)
[2020-08-07] MEDS: SIMVASTATIN 20 MG TABLET PO (08:11)
[2020-08-07] MEDS: DOCUSATE SODIUM 100 MG CAPSULE PO ×2 (08:11→16:35)
[2020-08-07] MEDS: FUROSEMIDE INJ 40 MG/4 ML VIAL 20 MG IV PUSH (08:58)
[2020-08-07] MEDS: SODIUM CHLORIDE 0.9% IV 250 ML 999 ML IV CONT (10:10)
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
[2020-08-07] MEDS: SODIUM CHLORIDE 0.9% IV 250 ML 125 ML IV CONT (11:50)
[2020-08-07 11:59] LABS: Anion Gap 4 mmol/L (8-16); Blood Urea Nitrogen 29 mg/dL (9-20); Calcium 8.6 mg/dL (8.4-10.2); Carbon Dioxide 29 mmol/L (22-30); Chloride 99 mmol/L (98-107); Estimated CRCL calculation 31 ml/min; Estimated Glomerular Filt Rate 53; Glucose 135 mg/dL (75-110); Magnesium 1.7 mg/dL (1.6-2.3); Sodium 132 mmol/L (137-145)
--- NOTE | 2020-08-07 13:27 | PCOTNOTE ---
Attempted to see patient this pm, however RN advised not to see for therapy due to decreased BP (86/59 last BP taken).
--- NOTE | 2020-08-07 14:10 | PCPTNOTE ---
The PT treatment was unable to be completed this afternoon. Verbal hold from RN due to hypotension. Will continue per Plan of Care frequency and duration.
--- NOTE | 2020-08-07 15:56 | PM.PNORT ---
Progress Note: A&P Assessment and Plan (1) Closed intertrochanteric fracture of right hip: Qualifiers: Encounter type: initial encounter Fracture alignment: displaced Qualified Code(s): S72.141A - Displaced intertrochanteric fracture of right femur, initial encounter for closed fracture Code(s): S72.141A - Displaced intertrochanteric fracture of right femur, initial encounter for closed fracture Status: Acute Assessment and Plan: POD#2 Right ORIF intertrochanteric femur fracture with gamma nail. Patient progressing well. Pain tolerable with pain medication. He was found to have orthostatic hypotension and urine retention today. Berry placed. Patient has been struggling with PT and will require more help. I recommend he be discharged to SNF or rehab. Care coordination has spoken to his family and they agree. WBAT with walker. Discharge planning in progress. Subjective Subjective Date/Time Seen: 08/07/20 15:56 POD#2 Right ORIF intertrochanteric femur fracture with gamma nail. Patient is currently resting comfortably in bed. Pain is tolerable with pain medications. Calf nontender. No numbness or tingling in his feet. States his pain is intermittent. 80-year-old male presented to the ER 08/03 after falling in his home. He was found to have a right intertrochanteric femur fracture. Patient states he was using a cane in 1 hand and holding a cup of coffee in the other and he lost his balance and fell. He did not hit his head, loose consciousness, or sustain any other injuries. He lives at home with his daughter. He states he is not allowed to stay at home by himself and typically has 1 of his 5 kids with him 12/10. Typically ambulates with a cane. Patient has a history of COPD/emphysema, hypertension, hyperlipidemia, benign prostatic hyperplasia currently with an indwelling Berry catheter, chronic kidney disease stage 3, chronic anemia, and right carotid artery disease status post recent left carotid endarterectomy last week. Patient smokes. History of contralateral hip fracture May 17, 2020 treated with gamma nail by Dr. Petersen. Review of Systems Review of Systems: All systems reviewed & are unremarkable except as noted in HPI and below Exam Narrative: Exam Narrative: 80-year-old male. Patient is alert and oriented. Resting comfortably in bed. No acute distress. No erythema or ecchymosis. No rashes or lesions noted. Warm, normal appearing skin. Dressing dry and intact with slight drainage. Tenderness at right hip. Calf nontender. Distal pulses palpable. Normal capillary refill. Patient able to move and wiggle toes. Light touch sensation intact. Berry catheter in place. Objective Data Vital Signs Vital Signs: Vital Signs - 24 hr 08/06/20 16:54 08/06/20 17:47 08/06/20 19:47 Temperature 98.1 F 98.3 F Pulse Rate 87 78 Respiratory Rate 16 16 Blood Pressure 151/64 H 131/71 Pulse Oximetry 90 91 93 08/07/20 04:53 08/07/20 09:50 08/07/20 09:54 Temperature 97.8 F Pulse Rate 80 Respiratory Rate 16 Blood Pressure 142/60 H 88/46 L 132/60 Pulse Oximetry 95 08/07/20 10:00 08/07/20 11:00 08/07/20 11:02 Temperature 97.0 F L Pulse Rate 109 H 101 H 104 H Respiratory Rate 20 Blood Pressure 124/55 L 111/84 Pulse Oximetry 93 08/07/20 11:04 08/07/20 14:00 08/07/20 14:45 Temperature 98.2 F Pulse Rate 120 H 97 99 Respiratory Rate 24 H Blood Pressure 86/49 L 120/55 L 136/51 L Pulse Oximetry 94 08/07/20 14:47 08/07/20 14:49 Temperature Pulse Rate 64 115 H Respiratory Rate Blood Pressure 120/59 L 100/64 Pulse Oximetry Intake/Output Intake/Output: Intake & Output 08/04/20 08/05/20 08/06/20 08/07/20 23:59 23:59 23:59 23:59 Intake Total 350 1700 1000 980 Output Total 500 1100 602 300 Balance -150 600 398 680 Meds/Results Medications: Active Medications Generic Name Dose Route Start Last Admin Trade Name Freq NE
[2020-08-07] MEDS: SODIUM CHLORIDE 0.9% IV 1,000 ML 50 ML IV CONT (16:34)
[2020-08-07] MEDS: guaiFENesin 12 HR 600 MG TABCR 1200 MG PO (20:44)
[2020-08-07] MEDS: TAMSULOSIN HCL 0.4 MG CAPSULE 0.8 MG PO (20:45)
[2020-08-07] MEDS: HYDROcodone/acetaminophen (*CRX) 5-325 MG TABLET 1 TAB PO (20:45)
[2020-08-08 05:59] LABS: Basophils Percent Auto 0.3 % (0.2-1.2); Eosinophils Absolute Auto 0.2 K/mm3 (0-0.3); Eosinophils Percent Auto 2.7 % (0-4.4); Hemoglobin 9.6 g/dL (14.0-18.0); Immature Granulocyte Absolute 0.05 K/mm3 (0.00-0.031); Immature Granulocyte Percent A 0.7 % (0-0.5); Lymphocytes Absolute Auto 0.83 K/mm3 (0.9-3.2); Mean Corpuscular HGB Conc 33.1 g/dl (32-36); Mean Corpuscular Hemoglobin 33.7 pg (26-34); Mean Corpuscular Volume 101.8 fl (80-100); Mean Platelet Volume 8.6 fl (7.4-10.4); Monocytes Absolute Auto 0.7 K/mm3 (0.1-0.6); Monocytes Percent Auto 8.8 % (2.6-8.5); Neutrophils Absolute Auto 5.8 K/mm3 (1.3-6.7); Neutrophils Percent Auto 76.5 % (45.5-73.1); Platelet Count Result 248 k/mm3 (150-375); Red Blood Count 2.85 M/mm3 (4.6-6.20); Red Cell Distribution Width 15.7 % (11.5-14.5); White Blood Count 7.5 K/mm3 (4.5-10.0)
[2020-08-08 06:00] VITALS: BP 154/71; PULSE 85; RESP 18; TEMP 36.4; O2SAT 95
[2020-08-08 06:04] LABS: Anion Gap 1 mmol/L (8-16); Blood Urea Nitrogen 31 mg/dL (9-20); Calcium 8.3 mg/dL (8.4-10.2); Carbon Dioxide 31 mmol/L (22-30); Chloride 101 mmol/L (98-107); Estimated CRCL calculation 33 ml/min; Estimated Glomerular Filt Rate 59; Glucose 90 mg/dL (75-110); Potassium 3.8 mmol/L (3.4-5.0); Sodium 133 mmol/L (137-145)
[2020-08-08] MEDS: LEVOTHYROXINE SODIUM 25 MCG TABLET PO (06:55)
[2020-08-08] MEDS: HYDROcodone/acetaminophen (*CRX) 5-325 MG TABLET 1 TAB PO (06:55)
[2020-08-08 09:00] VITALS: O2SAT 96
[2020-08-08 09:03] VITALS: BP 140/65; PULSE 74; O2SAT 96
[2020-08-08] MEDS: DOCUSATE SODIUM 100 MG CAPSULE PO (09:04)
[2020-08-08] MEDS: LOSARTAN POTASSIUM 25 MG TABLET PO (09:04)
[2020-08-08] MEDS: LORazepam (*CRX) 1 MG TABLET PO (09:04)
[2020-08-08] MEDS: guaiFENesin 12 HR 600 MG TABCR 1200 MG PO (09:04)
[2020-08-08] MEDS: ENOXAPARIN 30 MG/0.3 ML SYRINGE SUB-Q (09:05)
[2020-08-08] MEDS: SIMVASTATIN 20 MG TABLET PO (09:05)
[2020-08-08 09:52] VITALS: BMI 10.0
[2020-08-08] MEDS: SODIUM CHLORIDE 0.9% IV 1,000 ML 50 ML IV CONT (12:02)
--- NOTE | 2020-08-08 12:30 | PM.PNORT ---
Progress Note: A&P Assessment and Plan (1) Closed intertrochanteric fracture of right hip: Qualifiers: Encounter type: initial encounter Fracture alignment: displaced Qualified Code(s): S72.141A - Displaced intertrochanteric fracture of right femur, initial encounter for closed fracture Code(s): S72.141A - Displaced intertrochanteric fracture of right femur, initial encounter for closed fracture Status: Acute Assessment and Plan: POD#3 Right ORIF intertrochanteric femur fracture with gamma nail. Patient progressing well. Pain tolerable with pain medication. He was found to have orthostatic hypotension and urine retention yesterday. Berry placed. He is doing better today. Patient has been struggling with PT and will require more help. Spoke with the therapist who agreed. I recommend he be discharged to SNF or rehab. Care coordination has spoken to his family and they agree. Okay for discharge to rehab or SNF from ortho standpoint. Ortho instructions: D/C to SNF/rehab Xray in 2 weeks. f/u in office in 4 weeks. Wound Care: Hip: remove jenifer at 2 weeks post op. Daily dressing changes until healed. May shower. No soaking. PT: WBAT with walker DVT prophylaxis: continue Lovenox for 30 days total Pain medication: Percocet Subjective Subjective Date/Time Seen: 08/08/20 12:30 POD#3 Right ORIF intertrochanteric femur fracture with gamma nail. Patient was resting comfortably in a chair and was working with PT at the time of my visit. Pain is tolerable with pain medications. Calf nontender. No numbness or tingling in his feet. States his pain is intermittent, worse with activities. 80-year-old male presented to the ER 08/03 after falling in his home. He was found to have a right intertrochanteric femur fracture. Patient states he was using a cane in 1 hand and holding a cup of coffee in the other and he lost his balance and fell. He did not hit his head, loose consciousness, or sustain any other injuries. He lives at home with his daughter. He states he is not allowed to stay at home by himself and typically has 1 of his 5 kids with him 24/. Typically ambulates with a cane. Patient has a history of COPD/emphysema, hypertension, hyperlipidemia, benign prostatic hyperplasia currently with an indwelling Berry catheter, chronic kidney disease stage 3, chronic anemia, and right carotid artery disease status post recent left carotid endarterectomy last week. Patient smokes. History of contralateral hip fracture May 17, 2020 treated with gamma nail by Dr. Petersen. Review of Systems Review of Systems: All systems reviewed & are unremarkable except as noted in HPI and below Exam Narrative: Exam Narrative: 80-year-old male. Patient is alert and oriented. Resting comfortably in bed. No acute distress. No erythema or ecchymosis. No rashes or lesions noted. Warm, normal appearing skin. Dressing dry and intact with slight drainage. Tenderness at right hip. Calf nontender. Distal pulses palpable. Normal capillary refill. Patient able to move and wiggle toes. Light touch sensation intact. Berry catheter in place. Objective Data Vital Signs Vital Signs: Vital Signs - 24 hr 08/07/20 14:00 08/07/20 14:45 08/07/20 14:47 Temperature 98.2 F Pulse Rate 97 99 64 Respiratory Rate 24 H Blood Pressure 120/55 L 136/51 L 120/59 L Pulse Oximetry 94 08/07/20 14:49 08/07/20 17:43 08/07/20 21:00 Temperature 97.5 F L 97.6 F Pulse Rate 115 H 83 89 Respiratory Rate 22 H 18 Blood Pressure 100/64 151/55 H 152/72 H Pulse Oximetry 97 97 08/08/20 06:00 08/08/20 09:00 08/08/20 09:03 Temperature 97.5 F L Pulse Rate 85 74 Respiratory Rate 18 Blood Pressure 154/71 H 140/65 Pulse Oximetry 95 96 96 Intake/Output Intake/Output: Intake & Output 08/05/20 08/06/20 08/07/20 08/08/20 23:59 23:59 23:59 23:59 Intake Total 1700 1000 1220 1200 Output Total 1100 602 12
[2020-08-08 14:00] VITALS: BP 141/60; PULSE 97; RESP 20; TEMP 36.3; O2SAT 91
--- NOTE | 2020-08-08 14:03 | PM.DS ---
DS: Admitting Diagnosis Admitting Diagnosis Admitting Diagnosis: 1) Closed intertrochanteric fracture of right hip: Qualifiers: Encounter type: initial encounter Fracture alignment: displaced Qualified Code(s): S72.141A - Displaced intertrochanteric fracture of right femur, initial encounter for closed fracture Code(s): S72.141A - Displaced intertrochanteric fracture of right femur, initial encounter for closed fracture Status: Acute (2) Macrocytic anemia: Code(s): D53.9 - Nutritional anemia, unspecified Status: Acute (3) Abnormal urinalysis: Code(s): R82.90 - Unspecified abnormal findings in urine Status: Acute (4) Status post carotid endarterectomy: Code(s): Z98.890 - Other specified postprocedural states Status: Acute (5) Chronic kidney disease, stage 3: Code(s): N18.30 - Chronic kidney disease, stage 3 unspecified Status: Acute (6) Hypertension: Code(s): I10 - Essential (primary) hypertension Status: Chronic (7) Hyperlipidemia: Code(s): E78.5 - Hyperlipidemia, unspecified Status: Chronic (8) COPD with emphysema: Code(s): J43.9 - Emphysema, unspecified Status: Acute (9) Tobacco abuse: Code(s): Z72.0 - Tobacco use Status: Chronic (10) Hypothyroidism: Code(s): E03.9 - Hypothyroidism, unspecified Status: Acute Additional Plan DS: Discharge Diagnosis Discharge Diagnosis (1) Closed intertrochanteric fracture of right hip: Qualifiers: Encounter type: initial encounter Fracture alignment: displaced Qualified Code(s): S72.141A - Displaced intertrochanteric fracture of right femur, initial encounter for closed fracture Code(s): S72.141A - Displaced intertrochanteric fracture of right femur, initial encounter for closed fracture Status: Acute (2) Hypothyroidism: Code(s): E03.9 - Hypothyroidism, unspecified Status: Acute (3) COPD with emphysema: Code(s): J43.9 - Emphysema, unspecified Status: Acute (4) Chronic kidney disease, stage 3: Code(s): N18.30 - Chronic kidney disease, stage 3 unspecified Status: Acute (5) Pyuria: Code(s): R82.81 - Pyuria Status: Acute (6) Tobacco abuse: Code(s): Z72.0 - Tobacco use Status: Chronic (7) Anemia: Qualifiers: Anemia type: unspecified type Qualified Code(s): D64.9 - Anemia, unspecified Code(s): D64.9 - Anemia, unspecified Status: Acute (8) Anxiety: Code(s): F41.9 - Anxiety disorder, unspecified Status: Chronic (9) Hyperlipidemia: Code(s): E78.5 - Hyperlipidemia, unspecified Status: Chronic (10) Hypertension: Code(s): I10 - Essential (primary) hypertension Status: Chronic (11) COPD (chronic obstructive pulmonary disease): Code(s): J44.9 - Chronic obstructive pulmonary disease, unspecified Status: Chronic DS: Summary Hospital Course Hospital Course: 80 yo M admitted after suffering a fall resulting in R hip fx. Ortho was consulted and he underwent ORIF with gamma nail on 08/05 without complication and had benign post operative course w exception of orthostatic hypotension and ongoing pain. Levothyroxine was initiated during this hospitalization for elevated TSH and low T3. 08/06/20 Fell 08/03 after receiving COVID-19 vaccination. Pt has history of smoking with COPD/emphysema, hypertension, hyperlipidemia, benign prostatic hyperplasia currently with an indwelling Berry catheter, chronic kidney disease stage 3, chronic anemia, and right carotid artery disease status post recent left carotid endarterectomy. Pt sustained for closed intertrochanteric fracture of right hip SP uncomplicated ORIF right hip fracture with cephalomedullary nail 07/29/20. Pt states he has some r hip pain.TSH is high, T3 is low continue to watch. start levothyroxine x COPD maintenance inhalers, prn oxygen 08/07/20
== END 2020-08-08 16:10 | DRG 481 ==
LOC: ANHED 14:51 → ANH2MED 16:25
PROVIDERS: Family Medicine; Orthopaedic Surgery; Physician Assistant; Admitting Provider Internal Medicine; Emergency Provider Emergency Medicine; PCP Family Medicine; Visit Provider Hospitalist
PROC: 0QS636Z Reposition Right Upper Femur with Intramedullary Internal Fixation Device, Percutaneous Approach (ICD-10-PCS; CPT 27245; principal; 2020-08-05 12:00)
DX: S72.141A Displaced intertrochanteric fracture of right femur, initial encounter for closed fracture (principal); D62 Acute posthemorrhagic anemia; W18.39XA Other fall on same level, initial encounter; I12.9 Hypertensive chronic kidney disease with stage 1 through stage 4 chronic kidney disease, or unspecified chronic kidney disease; N18.30 Chronic kidney disease, stage 3 unspecified; E03.9 Hypothyroidism, unspecified; R82.81 Pyuria; R82.90 Unspecified abnormal findings in urine; F41.9 Anxiety disorder, unspecified; E78.5 Hyperlipidemia, unspecified; R33.9 Retention of urine, unspecified; I25.10 Atherosclerotic heart disease of native coronary artery without angina pectoris; I95.1 Orthostatic hypotension; J43.9 Emphysema, unspecified; N40.0 Benign prostatic hyperplasia without lower urinary tract symptoms; D53.9 Nutritional anemia, unspecified; F17.210 Nicotine dependence, cigarettes, uncomplicated; Z90.49 Acquired absence of other specified parts of digestive tract; Z98.890 Other specified postprocedural states; Z66 Do not resuscitate
CPT/HCPCS: 36415; 36430; 51702; 71045; 73502; 80048; 80053; 81001; 82607; 82728; 82746; 83540; 83550; 83735; 84439; 84443; 84480; 85014; 85018; 85025; 85027; 85046; 86850; 86900; 86901; 86923; 87086; 93005; 94640; 96361; 96374; 96375; 96376; 97110; 97116; 97162; 97165; 97530; 97535; 99285; A9270; C1713; C1769; G0378; J0131; J0690; J1100; J1170; J1650; J1940; J2270; J2405; J2704; J3480; J7030; J7040; J7050; J7120; P9016